=== PATIENT | female | born 1960 | race Caucasian/White ===

== ENCOUNTER 2023-02-10 09:37 | Outpatient (AMB) | payer OTHER, SELFPAY ==
[2023-02-10 09:38] VITALS: BP 120/78; PULSE 81; O2SAT 96; BMI 25.6
--- NOTE | 2023-02-10 09:38 | A.OFFPC_ITS ---
Vital Signs 02/10/23 09:38 Height 5 ft 5 in Weight 154 lb BMI 25.6 BP 120/78 Blood Pressure Location Lt brachial Position Sitting Pulse 81 Pulse Source Pulse Oximeter Pulse Oximetry (%) 96 Oxygen Delivery Method Room Air Intake Visit Reasons: f/u weight check [employer] Required: No Accompanied by: Self / Same As Patient Allergies No Known Allergies Allergy (Verified 02/10/23 09:46) Medication List - Last Reconciled 02/10/23 by Joseph Palencia PA-C bupropion HCl (Wellbutrin XL) 300 mg PO QAM 90 days ciclopirox 0.77% 1 appl topical BID 4 weeks finasteride 5 mg PO DAILY levothyroxine 88 mcg PO DAILY 90 days phentermine 37.5 mg PO DAILY 28 days triamcinolone acetonide 0.5% 1 appl topical DAILY 30 days Tobacco use date assessed: 02/10/23 Dental Screening Dental Screen Date: 02/10/23 Did you have a dental visit in the last 12 months?: Yes Did you have a dental problem in the last 6 months where you did not have access to dental care?: No Was dental information given to patient?: Patient has dentist HPI f/u weight check HPI Details Lucia is a 62 y/o F here today for follow-up visit. ? ? ? . Pmhx significant for Hypothyroid, UC, hyperlipidemia, anxiety, hyperlipidemia vit D def. ? .. ?? ? Overweight: At last visit we discussed her weight problem and patient wanted to try medication to help her reduce her weight. Janes started and has noted a 6 lb weight loss since last office visit. She otherwise denies any significant side effects of the new injectable therapy. She has a goal weight of 135lbs- BMI - 22 ?? ? CHRONIC MEDICAL CONDITIONS-- >? .. ? Hypothyroid:? Patient continues on levothyroxine 88 mcg.? TSH has been stable lately.? Patient having difficulty with losing weight.? .. ? Anxiety: Patient reports as of late her anxiety has been very elevated due to home family stressors.? She does report her anxiety has been somewhat on manageable at times though continues on Wellbutrin.? .. ? UC; Has been in remission over the last 10-15 years. ? .. ? Hyperlipidemia: Patient's previous lipid panel showing an elevated cholesterol and LDL of 160s . Will continue to work on lifestyle modifications on reducing high cholesterol foods in her diet. 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 1. Little interest or pleasure in doing things: not at all 2. Feeling down, depressed, or hopeless: not at all 3. Trouble falling or staying asleep, or sleeping too much: several days 4. Feeling tired or having little energy: several days 5. Poor appetite or overeating: more than half the days 6. Feeling bad about yourself - or that you are a failure or have let yourself or your family down: several days 7. Trouble concentrating on things, such as reading the newspaper or watching television: not at all 8. Moving or speaking so slowly that other people could have noticed. Or the opposite - being so fidgety or restless that you have been moving around a lot more than usual: not at all 9. Thoughts that you would be better off or of hurting yourself in some way: not at all Total score: 5 Depression Screening Interpretation: Positive Depression Screening Follow-up: Existing condition 75042 - PHQ-9 Billing: Yes Source: Developed by Drs. Frank Hirsch, Radha José, Zach Carter and colleagues, with an educational jose roberto from [employer]. Thrive Questionnaire Date Thrive assessed: 02/10/23 I am a: Patient What is your living situation today?: I have a steady place to live Within the past 12 months, did the food you bought not last and you didn't have the money to get more?: Never true Within the past 12 months, did you worry whether your food would run out before you got money to buy more?: Never true Do you have trouble paying for medicines?: No Do you have trouble getting transportation to medical appointments?: No Do you have trouble paying your heating and electricity bill?: No Do you have trouble taking care of your child, family member or friend?: No Do you have trouble with day-to-day activities such as bathing, preparing meals, shopping, managing finances, etc.?: No Are you currently unemployed and looking for a job?: No Are you interested in more education?: No Please select the resources that you would like help with: None Currently or been in a relationship where the following occur: no concerns reported AUDIT C Alcohol Use Questionnaire (AUDIT-C) 1. How often do you have a drink containing alcohol?: Monthly or less 2. How many drinks containing alcohol do you have on a typical day when you are drinking?: 1 or 2 3. How often do you have six or more drinks on one occasion?: Never Total Score: 1 GABE-7 AMB Questionnaire GABE-7 Date GABE - 7 assessed: 02/10/23 Feeling nervous, anxious, or on edge: 1 = Several days Not being able to stop or control worryin = Several days Worrying too much about different things: 1 = Several days Trouble relaxin = More than half the days Being so restless that it is hard to sit still: 2 = More than half the days Becoming easily annoyed or irritable: 2 = More than half the days Feeling afraid as if something awful might happen: 1 = Several days Total GABE-7 score (0-4 normal; 5-9 mild; 10-14 moderate; 15-21 severe): 10 Source: Developed by Drs. Frank Hirsch, Radha José, Zach Carter and colleagues, with an educational jose roberto from [employer] GABE-7 Assessment Billing GABE-7 Assessment Tool: GABE-7 Assessment 36076 Review of Systems Const Denies headache(s) Eyes Denies loss of vision ENT Denies vertigo, Denies dizziness, Denies headache(s) and Denies sore throat Card Denies chest pain, Denies leg edema and Denies lightheadedness Resp Denies cough, Denies hemoptysis and Denies wheezing GI Denies abdominal pain, Denies melena, Denies constipation, Denies diarrhea and Denies vomiting Denies urinary frequency, Denies dysuria and Denies urinary urgency Musc Denies arthralgias, Denies joint swelling, Denies numbness and Denies tingling Neuro Denies Abnormal speech present, Denies behavioral changes, Denies vertigo, Denies dizziness, Denies headache(s), Denies loss of vision, Denies memory loss, Denies numbness and Denies tingling Psych Denies anxiety, Denies behavioral changes, Denies depression, Denies memory loss and Denies panic attacks Chetan/Lymph Denies easy bleeding and Denies easy bruising Aller/Immun Denies wheezing Physical exam (Primary Care) Vital Signs: Last Vital Signs Pulse 81 02/10/23 09:38 BP 120/78 02/10/23 09:38 Pulse Ox 96 02/10/23 09:38 Oxygen Delivery Method Room Air 02/10/23 09:38 BMI result Body Mass Index 25.6 Tobacco/Smoking Status: Tobacco use Status Tobacco use date assessed 02/10/23 02/10/23 09:43 Patient Tobacco Use Status Never used Tobacco 02/10/23 09:43 e-Cigarette/Vaping Use Never Used 02/10/23 09:43 PHQ-9: PHQ-9 Score PHQ-9: Total score 5 02/10/23 09:50 Depression Screening Interpretation: Positive Depression Screening Follow-up: Existing condition Thrive Assessment: Date of Thrive Assessment Date Thrive assessed 02/10/23 02/10/23 09:43 Currently or been in a relationship where the following occur: no concerns reported Const General: healthy appearing, no acute distress, alert and awake Nutritional Appearance: well nourished Orientation/consciousness: oriented to person, oriented to place and oriented to time HENMT Ears: TM's normal bilaterally General nose exam: Normal nasal mucous membranes and turbinates present Eyes Conjunctivae: conjunctivae normal Sclerae: sclerae normal Pupils: Equal, round and reactive pupils present Neck Neck: Yes no lymphadenopathy and Yes no JVD Thyroid: Thyroid normal Carotids: no bruits Resp Effort & Inspection: normal respiratory effort and not tachypneic Auscultation: no crackles, no rales, no rhonchi and no wheezes Cardio Rate: regular rate Rhythm: regular rhythm Heart sounds: no murmurs and normal S1 and S2 GI Palpation (GI): Soft to palpation, nontender, no hepatomegaly and no splenomegaly Auscultation: normal bowel sounds Skin General skin exam: no rashes or lesions noted and dry skin Neuro General: oriented to person, oriented to place and oriented to time Cranial nerves: Yes Equal, round and reactive pupils present Speech: No Abnormal speech present Gait exam (Neuro): Normal gait present Motor exam (neuro): no tremor noted Extrem Right upper extremity: full ROM Left upper extremity: full ROM Right lower extremity: full ROM; no edema Left lower extremity: full ROM; no edema Psych Mental Status: mental status grossly normal Speech and movement: Normal speech and movement present Affect: normal affect Attitude: cooperative Thought process: Normal thought process present Assessment and Plan Assessment & Plan (1) Overweight (BMI 25.0-29.9): Code(s): E66.3 - Overweight Plan: Has started new injectable therapy for weight loss and noted 6 lb weight loss since last office visit. Denies any intolerable side effects. Would like to increase her dose over the next 4-8 weeks for further weight loss. Has a goal of being 135 lb. Medications: New semaglutide (weight loss) (Wegovy) administer weeks 9 through 12 of therapy 1 mg (0.5 mL) subcut QWEEK 2 mL 0RF E66.3 - Overweight semaglutide (weight loss) (Wegovy) administer weeks 13 through 16 of therapy 1.7 mg (0.75 mL) subcut QWEEK 4 weeks 3 mL 0RF E66.3 - Overweight Discontinued phentermine must administer 30 minutes before or 1-2 hours after breakfast Discontinued Reason: Doctor's Order 37.5 mg PO DAILY 28 days 28 tabs 0RF E66.3 - Overweight Coding Level of Care Code Est Pt Level 3 (72430) Diagnoses Overweight (BMI 25.0-29.9) E66.3 Additional Codes GABE-7 Assessment Billing - GABE-7 Assessment Tool: GABE-7 Assessment 36003 ([id number])
== END 2023-02-10 10:10 | disposition home or self-care (01) ==
PROVIDERS: PCP Physician Assistant; Visit Provider Physician Assistant
DX: E66.3 Overweight (principal)
CPT/HCPCS: 99213

== ENCOUNTER 2023-05-02 09:22 | Outpatient (REF) | payer OTHER, SELFPAY | END 2023-05-02 09:23 | disposition home or self-care (01) | LOC: HO.SH 09:22 | PROVIDERS: Visit Provider Physician Assistant | DX: Z01.118 Encounter for examination of ears and hearing with other abnormal findings (principal); H90.3 Sensorineural hearing loss, bilateral | CPT/HCPCS: 92557 ==

== ENCOUNTER 2023-12-23 09:37 | Outpatient (AMB) | payer OTHER, SELFPAY ==
[2023-12-23 09:52] VITALS: BP 124/84; PULSE 92; O2SAT 100; BMI 20.5
--- NOTE | 2023-12-23 09:52 | A.OFFPC_ITS ---
Vital Signs 12/23/23 09:52 Height 5 ft 5 in Weight 123 lb 8 oz BMI 20.5 BP 124/84 Blood Pressure Location Lt brachial Position Sitting Pulse 92 Pulse Source Pulse Oximeter Pulse Oximetry (%) 100 Oxygen Delivery Method Room Air Intake Visit Reasons: pe Intake Note: Patient is here today for a physical. 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: No Accompanied by: Self / Same As Patient Allergies No Known Allergies Allergy (Verified 12/23/23 10:22) Medication List - Last Reconciled 12/23/23 by Joseph Palencia PA-C bupropion HCl XL (Wellbutrin XL) 300 mg PO QAM 90 days ciclopirox 0.77% 1 appl topical BID 4 weeks cyclobenzaprine 5 mg PO BID 7 days finasteride 5 mg PO DAILY levothyroxine 88 mcg PO DAILY 90 days semaglutide (weight loss) (Wegovy) 2.4 mg (0.75 mL) subcut QWEEK 4 weeks triamcinolone acetonide 0.5% 1 appl topical DAILY 30 days Tobacco use date assessed: 12/23/23 Dental Screening Dental Screen Date: 12/23/23 Did you have a dental visit in the last 12 months?: Yes Did you have a dental problem in the last 6 months where you did not have access to dental care?: No Was dental information given to patient?: Patient has dentist HPI pe HPI Details Lucia is a 63-year-old female here today for routine annual physical. ? ? ? . Pmhx significant for Hypothyroid, UC, hyperlipidemia, anxiety, hyperlipidemia vit D def. ? .. ?? ? Overweight: At last visit we discussed her weight problem and patient wanted to try medication to help her reduce her weight. Janes started and has noted significant amount of weight loss.. She otherwise denies any significant side effects of the new injectable therapy. She has a goal weight of 135lbs, she is now 123 lb. KENYAY JUSTIFICATION-->>> She has noted benefit of controlled cholesterol, meeting weight goal, better self-esteem and decreased depression and anxiety. Also has noted to have a low TSH thus reducing her her levothyroxine dose. ?? ? CHRONIC MEDICAL CONDITIONS-- >? .. ? Hypothyroid:? Patient continues on levothyroxine 88 mcg.? TSH slightly low thus will reduce her levothyroxine dose.? Patient having difficulty with losing weight.? .. ? Anxiety: Patient reports as of late her anxiety has been very elevated d ue to home family stressors.? She does report her anxiety has been somewhat on manageable at times though continues on Wellbutrin.? .. ? UC; Followed by Dr Steven, And UC has been active as of late, has followed up with cath lab radiology technician and continues on treatment.. ? .. ? Hyperlipidemia: Patient's previous lipid panel improved total cholesterol and LDL. Will continue to work on lifestyle modifications on reducing high cholesterol foods in her diet. Mammo - UTD with Mammo- gets done at [facility] .. ? Colonoscopy: Patient receives annual colonoscopies due to her history of?UC- most recent colonoscopy done in December of 2021 ? . ? 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 .. Vaccine: UTD with COVID and Tdap. 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 1. Little interest or pleasure in doing things: not at all 2. Feeling down, depressed, or hopeless: not at all 3. Trouble falling or staying asleep, or sleeping too much: not at all 4. Feeling tired or having little energy: not at all 5. Poor appetite or overeating: not at all 6. Feeling bad about yourself - or that you are a failure or have let yourself or your family down: not at all 7. Trouble concentrating on things, such as reading the newspaper or watching television: not at all 8. Moving or speaking so slowly that other people could have noticed. Or the opposite - being so fidgety or restless that you have been moving around a lot more than usual: not at all 9. Thoughts that you would be better off or of hurting yourself in some way: not at all Total score: 0 Depression Screening Interpretation: Negative Depression Screening Done: Yes 29659 - PHQ-9 Billing: Yes Source: Developed by Drs. Frank Hirsch, Radha José, Zach Carter and colleagues, with an educational jose roberto from [employer]. Thrive Questionnaire Date Thrive assessed: 12/23/23 I am a: Patient What is your living situation today?: I have a steady place to live Within the past 12 months, did the food you bought not last and you didn't have the money to get more?: Never true Within the past 12 months, did you worry whether your food would run out before you got money to buy more?: Never true Do you have trouble paying for medicines?: No Do you have trouble getting transportation to medical appointments?: No Do you have trouble paying your heating and electricity bill?: No Do you have trouble taking care of your child, family member or friend?: No Do you have trouble with day-to-day activities such as bathing, preparing meals, shopping, managing finances, etc.?: No Are you currently unemployed and looking for a job?: No Are you interested in more education?: No Please select the resources that you would like help with: None Currently or been in a relationship where the following occur: no concerns reported THRIVE Score: 0 AUDIT C Alcohol Use Questionnaire (AUDIT-C) 1. How often do you have a drink containing alcohol?: Never 3. How often do you have six or more drinks on one occasion?: Never Total Score: 0 GABE-7 AMB Questionnaire GABE-7 Date GABE - 7 assessed: 12/23/23 Feeling nervous, anxious, or on edge: 0 = Not at all Not being able to stop or control worryin = Not at all Worrying too much about different things: 0 = Not at all Trouble relaxin = Not at all Being so restless that it is hard to sit still: 0 = Not at all Becoming easily annoyed or irritable: 0 = Not at all Feeling afraid as if something awful might happen: 0 = Not at all Total GABE-7 score (0-4 normal; 5-9 mild; 10-14 moderate; 15-21 severe): 0 Source: Developed by Drs. Frank Hirsch, Radha José, Zach Carter and colleagues, with an educational jose roberto from [employer]. GABE-7 Assessment Billing GABE-7 Assessment Tool: GABE-7 Assessment 04507 Review of Systems Const Denies body aches, Denies chills, Denies excessive sweating, Denies fatigue, Denies fever(s) and Denies headache(s) Eyes Denies blurry vision ENT Denies dysphagia, Denies vertigo, Denies dizziness, Denies headache(s), Denies hearing loss and Denies tinnitus Card Denies chest pain, Denies chest pain with activity, Denies syncope, Denies irregular heart rhythm and Denies dyspnea Resp Denies chest congestion, Denies cough, Denies hemoptysis, Denies dyspnea and Denies wheezing GI Denies abdominal pain, Denies melena, Denies hematochezia, Denies coffee ground emesis, Denies dysphagia, Denies diarrhea, Denies nausea and Denies vomiting Denies urinary frequency, Denies dysuria, Denies urinary hesitancy and Denies urinary urgency Musc Denies arthralgias, Denies limited range of motion, Denies muscle cramps and Denies muscle weakness Skin/Breast Denies rash and Denies skin ulcer Neuro Denies Abnormal speech present, Denies confusion, Denies vertigo, Denies dizziness, Denies syncope, Denies headache(s), Denies memory loss and Denies seizure-like activity Psych Denies anxiety, Denies confusion, Denies depression, Denies memory loss, Denies panic attacks and Denies paranoia Endo Denies excessive sweating, Denies fatigue, Denies flushing, Denies polydipsia and Denies polyuria Aller/Immun Denies wheezing Physical exam (Primary Care) Vital Signs: Last Vital Signs Pulse 92 05/28/24 09:52 BP 124/84 12/23/23 09:52 Pulse Ox 100 12/23/23 09:52 Oxygen Delivery Method Room Air 12/23/23 09:52 BMI result Body Mass Index 20.5 Tobacco/Smoking Status: Tobacco use Status Tobacco use date assessed 12/23/23 12/23/23 09:53 Patient Tobacco Use Status Never used Tobacco 12/23/23 09:53 e-Cigarette/Vaping Use Never Used 12/23/23 09:53 PHQ-9: PHQ-9 Score PHQ-9: Total score 0 12/23/23 10:05 Depression Screening Interpretation: Negative Thrive Assessment: Date of Thrive Assessment Date Thrive assessed 12/23/23 12/23/23 10:05 Currently or been in a relationship where the following occur: no concerns reported Const General: cooperative, comfortable, no acute distress, alert and awake; No confusion Orientation/consciousness: oriented to person, oriented to place, patient oriented x3 and No confusion HENMT Head: Yes normocephalic Ears: external ears normal and TM's normal bilaterally Face and sinus: No sinus tenderness Mouth: Normal oral and palatal mucosa present and tongue normal Teeth and gingiva: dentition normal and gingiva normal Throat: Yes posterior oropharynx normal, Yes tonsils normal and Yes uvula midline Eyes Conjunctivae: conjunctivae normal Sclerae: sclerae normal Pupils: Equal, round and reactive pupils present EOM: EOMs intact bilaterally Direct Ophthalmoscopy: No no photophobia Neck Neck: Yes no lymphadenopathy, No tender and Yes no JVD Thyroid: Thyroid normal Carotids: no bruits Chest Chest palpation & inspection: no tenderness Resp Effort & Inspection: normal respiratory effort, no audible wheezes, not labored and no stridor Auscultation: no crackles, no rales, no rhonchi and no wheezes Cardio Jugular venous distension: no JVD Rate: regular rate, not bradycardic and not tachycardic Rhythm: regular rhythm Bruits: no carotid bruits Peripheral pulses: Peripheral pulses 2+ throughout GI Inspection: Yes normal to inspection, No abdominal wall ecchymosis and No visible herniation Palpation (GI): Soft to palpation, nontender, no guarding, not rigid and No hepatosplenomegaly present Auscultation: normoactive bowel sounds General: Yes no CVA tenderness Back/Spine/Pelvis Back: no CVA tenderness and No back tenderness Cervical Spine: cervical ROM normal Thoracic/Lumbar Spine: thoracic and lumbar spine normal to inspection, straight leg raise negative bilaterally, No thoraco-lumbar ROM limited and No lumbar spinal tenderness Skin Lesions: no lesions Rashes: no rashes Wounds: no wounds Neuro General: oriented to person, oriented to place, patient oriented x3, CN's II-XI intact bilaterally and No confusion Cranial nerves: Yes Equal, round and reactive pupils present and Yes Normal accommodation reflex present Cognition (Neuro): normal cognition Speech: No Abnormal speech present Gait exam (Neuro): Normal gait present Motor exam (neuro): 5/5 motor strength present throughout Extrem Right upper extremity: full ROM; no cyanosis Left upper extremity: full ROM; no cyanosis Right lower extremity: no edema Left lower extremity: no edema Psych Appearance: grossly normal Mental Status: mental status grossly normal Affect: normal affect Attitude: cooperative Thought process: Normal thought process present Assessment and Plan Assessment & Plan (1) Annual physical exam: Code(s): Z00.00 - Encounter for general adult medical examination without abnormal findings (2) Overweight (BMI 25.0-29.9): Code(s): E66.3 - Overweight Plan: Patient continues on will go we and has lost a significant amount of weight. She has found benefit such as controlled cholesterol, lower dose of levothyroxine, better mental health due to her self image. We will try to maintain her WEGOVY at 1.7 mg weekly. (3) GABE (generalized anxiety disorder): Code(s): F41.1 - Generalized anxiety disorder Plan: Mental health has been much better since losing weight. She continues on bupropion with good effect. (4) Hypothyroidism: Code(s): E03.9 - Hypothyroidism, unspecified Qualifiers: Hypothyroidism type: unspecified Qualified Code(s): E03.9 - Hypothyroidism, unspecified Plan: Most recent TSH low at 0.13. Will reduce her dose of levothyroxine down to 75 mcg. Continues on levothyroxine 88 mcg daily. Will continue to follow TSH to assure normal. (5) Borderline high cholesterol: Code(s): E78.9 - Disorder of lipoprotein metabolism, unspecified Plan: Most recent fasting lipid panel showing improved total cholesterol and LDL. Has been able to lose weight with new GLP 1. Will continue to work on lifestyle modifications to reduce her cholesterol. (6) Ulcerative colitis: Code(s): K51.90 - Ulcerative colitis, unspecified, without complications Qualifiers: Ulcerative colitis location: unspecified ulcerative colitis location Digestive disease complication type: without complication Qualified Code(s): K51.90 - Ulcerative colitis, unspecified, without complications Plan: Followed by gastroenterology. Continues on treatment for her ulcerative colitis . She does report her ulcerative colitis has been more active as of late. Unclear if this is due to taking new GLP 1. Orders: Orders Lipid Panel 6 Months E78.9 - Disorder of lipoprotein metabolism, unspecified TSH reflex Free T4 6 Months E03.9 - Hypothyroidism, unspecified Complete Blood Count no Diff 6 Months E03.9 - Hypothyroidism, unspecified Comprehensive [place]. Panel Fast 6 Months E03.9 - Hypothyroidism, unspecified Medications: New levothyroxine 75 mcg PO DAILY 90 days 90 caps 1RF E03.9 - Hypothyroidism, unspecified semaglutide (weight loss) (Wegovy) 1.7 mg (0.75 mL) subcut QWEEK 4 weeks 3 mL 6RF E66.3 - Overweight Discontinued semaglutide (weight loss) (Wegovy) Discontinued Reason: Doctor's Order 2.4 mg (0.75 mL) subcut QWEEK 4 weeks 3 mL 1RF E66.3 - Overweight levothyroxine Discontinued Reason: Doctor's Order 88 mcg PO DAILY 90 days 90 tabs 0RF E03.9 - Hypothyroidism, unspecified Patient Instructions: Goal: LDL to be below 160 Barriers: Active ulcerative colitis, Adherence to physical activity and healthy eating habits. Coding Level of Care Code Est Pt Prev Care 40-64y(16604) Diagnoses Annual physical exam Z00.00 Overweight (BMI 25.0-29.9) E66.3 GABE (generalized anxiety disorder) F41.1 Hypothyroidism, unspecified type E03.9 Hypothyroidism type: unspecified Borderline high cholesterol E78.9 Ulcerative colitis without complications, unspecified location K51.90 Ulcerative colitis location: unspecified ulcerative colitis location Digestive disease complication type: without complication Additional Codes GABE-7 Assessment Billing - GABE-7 Assessment Tool: GABE-7 Assessment [id number] ([id number])
== END 2023-12-23 10:54 | disposition home or self-care (01) ==
PROVIDERS: Visit Provider Physician Assistant
DX: Z00.00 Encounter for general adult medical examination without abnormal findings (principal); F41.1 Generalized anxiety disorder; E03.9 Hypothyroidism, unspecified; K51.90 Ulcerative colitis, unspecified, without complications; E78.9 Disorder of lipoprotein metabolism, unspecified
CPT/HCPCS: 99396

== ENCOUNTER 2024-06-10 10:26 | Outpatient (REF) | payer OTHER, SELFPAY ==
--- NOTE | ~2024-06-10 | MM_ITS ---
EXAMINATION: BONE DENSITOMETRY CLINICAL INDICATION: Menopause. COMPARISON: This is the patient's baseline examination. TECHNIQUE: Using a [employer] DXA System (software version: 13.1) manufactured by [employer], dual-energy x-ray absorptiometry was performed of the lumbar spine and left hip. The images are of good technical quality. Summary results are attached. FINDINGS: LEFT FEMUR, NECK: BMD 0.805 g/cm2, Z-score -0.1, T-score -1.7, osteopenia. LEFT FEMUR, TOTAL: BMD 0.867 g/cm2, Z-score 0.2, T-score -1.1, osteopenia. AP SPINE L1-L4: BMD 0.922 g/cm2, Z-score -0.4, T-score -2.1, osteopenia. IDENTIFIED RISK FACTORS: Menopause, secondary osteoporosis. HISTORY OF FRACTURE: None listed. MEDICATIONS: Vitamin D. MM/XR DEXA axial skeleton IMPRESSION: 1. DIAGNOSIS: Osteopenia based on the lowest T-score value of -2.1 in the lumbar spine applying World Health Organization criteria. 2. 10-YEAR FRACTURE RISK PREDICTION, FRAX: Major osteoporotic fracture (clinical spine, forearm, hip or shoulder) 8.1%. Hip fracture 0.9%. 3. Treatment Recommendations: NOF guidelines recommend consideration for treatment in postmenopausal women and men age 50 and older presenting with the following: -A hip or vertebral (clinical or morphometric) fracture. -T-score less than or equal to -2.5 at the femoral neck or spine after appropriate evaluation to exclude secondary causes. -Low bone mass at the hip or spine and a 10-year fracture probability by FRAX of greater than or equal to 3% for hip fracture or greater than or equal to 20% for major osteoporotic fracture based on the [place] adapted WHO algorithm. 4. Other Recommendations: All treatment decisions require clinical judgment and consideration of individual patient factors, including patient preferences, comorbidities, previous drug use, risk factors not captured in the FRAX model (e.g. frailty, falls, vitamin D deficiency, increased bone turnover, interval significant decline in bone density) and possible under or overestimation of fracture risk by FRAX. Additional medical evaluation for secondary cause of low bone mineral density may be appropriate. FUTURE SCAN RECOMMENDATION: People with diagnosed cases of osteoporosis or at high risk for fracture should have regular bone mineral density tests. For patients eligible for Medicare, routine testing is allowed once every 2 years. The testing frequency can be increased to one year for patients who have rapidly progressing disease, those who are receiving or discontinuing medical therapy to restore bone mass, or have additional risk factors. Electronically signed by: Megan Castillo MD 06/10/2024 12:10 PM [email or web address]
== END 2024-06-10 10:27 | disposition home or self-care (01) ==
LOC: HO.MAMMO 10:26
PROVIDERS: PCP Physician Assistant; Visit Provider Physician Assistant
DX: Z78.0 Asymptomatic menopausal state (principal)
CPT/HCPCS: 77080

== ENCOUNTER 2024-11-10 14:15 | Outpatient (AMB) | payer BC, SELFPAY ==
[2024-11-10 14:21] VITALS: BP 148/90; PULSE 107; TEMP 36.2; O2SAT 98; BMI 21.9
--- NOTE | 2024-11-10 14:21 | A.OFFPC_ITS ---
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 Required: No Accompanied by: Self / Same As Patient Allergies No Known Allergies Allergy (Verified 11/10/24 14:39) Medication List - Last Reconciled 11/10/24 by Joseph Palencia PA-C bimatoprost 0.03% topical DAILY bupropion HCl XL (Wellbutrin XL) 300 mg PO QAM 90 days cyclobenzaprine 5 mg PO BID 7 days estradiol 0.01%(0.1mg/gram) vaginal finasteride 5 mg PO DAILY levothyroxine 75 mcg PO DAILY minoxidil mg PO semaglutide (weight loss) (Wegovy) 1.7 mg (0.75 mL) subcut QWEEK 4 weeks triamcinolone acetonide 0.5% 1 appl topical DAILY 30 days upadacitinib ER (Rinvoq) 45 mg PO DAILY Tobacco use date assessed: 11/10/24 Dental Screening Dental Screen Date: 11/10/24 Did you have a dental visit in the last 12 months?: Yes Did you have a dental problem in the last 6 months where you did not have access to dental care?: No Was dental information given to patient?: Patient has dentist HPI Med review HPI Details Lucia is a 63-year-old female here today for a follow up. ? ? ? . Pmhx significant for Hypothyroid, UC, hyperlipidemia, anxiety, hyperlipidemia vit D def. ? .. ?? ? Overweight: She has ceased Wegovy use a few months before this visit due to cost considerations and adverse effects such as hair loss and fatigue, noting these changes coincide with increased cholesterol and blood pressure levels. Historical context reveals a stabilized state of ulcerative colitis with non- overlapping therapeutic regimens of Entyvio and Rinvoq showing success. Complaints of insulin resistance and a slow metabolism complicate weight management, leading to the patient's anxiety over returning to past unhealthy weight levels. WEGOVY JUSTIFICATION-->>> She has noted benefit of controlled cholesterol, meeting weight goal, better self-esteem and decreased depression and anxiety. Also has noted to have a low TSH thus reducing her her levothyroxine dose. ? Hypothyroid:? Patient continues on levothyroxine 75 mcg. Will recheck TSH to assure normal? Patient having difficulty with losing weight.? .. ? Anxiety: Patient reports as of late her anxiety has been very elevated due to home family stressors.? She does report her anxiety has been somewhat on manageable at times though continues on Wellbutrin.? .. ? UC; Followed by Dr Bland, And UC has been active as of late, has fo llowed up with gut dropper and continues on treatment.. She reports her inflammatory bowel disease has been fairly well controlled lately after she has finished treatment. ? .. ? Hyperlipidemia: Most recent lipid panel taken (nonfasting) showing a slightly borderline high cholesterol. PLAN: Plan on getting a true fasting lipid panel to ensure appropriate values of her total cholesterol and LDL. Will continue to work on lifestyle modifications on reducing high cholesterol foods in her diet. 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 1. Little interest or pleasure in doing things: not at all 2. Feeling down, depressed, or hopeless: not at all 3. Trouble falling or staying asleep, or sleeping too much: not at all 4. Feeling tired or having little energy: not at all 5. Poor appetite or overeating: not at all 6. Feeling bad about yourself - or that you are a failure or have let yourself or your family down: not at all 7. Trouble concentrating on things, such as reading the newspaper or watching television: not at all 8. Moving or speaking so slowly that other people could have noticed. Or the opposite - being so fidgety or restless that you have been moving around a lot more than usual: not at all 9. Thoughts that you would be better off or of hurting yourself in some way: not at all Total score: 0 Depression Screening Interpretation: Negative Depression Screening Done: Yes 80604 - PHQ-9 Billing: Yes Source: Developed by Drs. Frank Hirsch, Radha José, Zach Carter and colleagues, with an educational jose roberto from [employer] Thrive Questionnaire Date Thrive assessed: 11/10/24 I am a: Patient What is your living situation today?: I have a steady place to live Within the past 12 months, did the food you bought not last and you didn't have the money to get more?: Never true Within the past 12 months, did you worry whether your food would run out before you got money to buy more?: Never true Do you have trouble paying for medicines?: No Do you have trouble getting transportation to medical appointments?: No Do you have trouble paying your heating and electricity bill?: No Do you have trouble taking care of your child, family member or friend?: No Do you have trouble with day-to-day activities such as bathing, preparing meals, shopping, managing finances, etc.?: No Are you currently unemployed and looking for a job?: No Are you interested in more education?: No Please select the resources that you would like help with: None Currently or been in a relationship where the following occur: No concerns reported THRIVE Score: 0 AUDIT C Alcohol Use Questionnaire (AUDIT-C) 1. How often do you have a drink containing alcohol?: Never 3. How often do you have six or more drinks on one occasion?: Never Total Score: 0 GABE-7 AMB Questionnaire GABE-7 Date GABE - 7 assessed: 11/10/24 Feeling nervous, anxious, or on edge: 0 = Not at all Not being able to stop or control worryin = Not at all Worrying too much about different things: 0 = Not at all Trouble relaxin = Not at all Being so restless that it is hard to sit still: 0 = Not at all Becoming easily annoyed or irritable: 0 = Not at all Feeling afraid as if something awful might happen: 0 = Not at all Total GABE-7 score (0-4 normal; 5-9 mild; 10-14 moderate; 15-21 severe): 0 Source: Developed by Drs. Frank Hirsch, Radha José, Zach Carter and colleagues, with an educational jose roberto from [employer] GABE-7 Assessment Billing GABE-7 Assessment Tool: GABE-7 Assessment 41627 Review of Systems Const Denies headache(s) Eyes Denies loss of vision ENT Denies vertigo, Denies dizziness, Denies headache(s) and Denies sore throat Card Denies chest pain, Denies leg edema and Denies lightheadedness Resp Denies cough, Denies hemoptysis and Denies wheezing GI Denies abdominal pain, Denies melena, Denies constipation, Denies diarrhea and Denies vomiting Denies urinary frequency, Denies dysuria and Denies urinary urgency Musc Denies arthralgias, Denies joint swelling, Denies numbness and Denies tingling Neuro Denies Abnormal speech present, Denies behavioral changes, Denies vertigo, Denies dizziness, Denies headache(s), Denies loss of vision, Denies memory loss, Denies numbness and Denies tingling Psych Denies anxiety, Denies behavioral changes, Denies depression, Denies memory loss and Denies panic attacks Chetan/Lymph Denies easy bleeding and Denies easy bruising Aller/Immun Denies wheezing Physical exam (Primary Care) Vital Signs: Last Vital Signs Temp 97.1 F 11/10/24 14:21 Pulse 107 H 11/10/24 14:21 BP 125/70 11/10/24 14:57 Pulse Ox 98 11/10/24 14:21 Oxygen Delivery Method Room Air 11/10/24 14:21 BMI result Body Mass Index 21.9 Tobacco/Smoking Status: Tobacco use Status Tobacco use date assessed 11/10/24 11/10/24 14:24 Patient Tobacco Use Status Never used Tobacco 11/10/24 14:24 e-Cigarette/Vaping Use Never Used 11/10/24 14:24 PHQ-9: PHQ-9 Score PHQ-9: Total score 0 11/10/24 14:30 Depression Screening Interpretation: Negative Thrive Assessment: Date of Thrive Assessment Date Thrive assessed 11/10/24 11/10/24 14:24 Currently or been in a relationship where the following occur: No concerns reported Const General: healthy appearing, no acute distress, alert and awake Nutritional Appearance: well nourished Orientation/consciousness: oriented to person, oriented to place and oriented to time HENMT Ears: TM's normal bilaterally General nose exam: Normal nasal mucous membranes and turbinates present Eyes Conjunctivae: conjunctivae normal Sclerae: sclerae normal Pupils: Equal, round and reactive pupils present Neck Neck: Yes no lymphadenopathy and Yes no JVD Thyroid: Thyroid normal Carotids: no bruits Resp Effort & Inspection: normal respiratory effort and not tachypneic Auscultation: no crackles, no rales, no rhonchi and no wheezes Cardio Rate: regular rate Rhythm: regular rhythm Heart sounds: no murmurs and normal S1 and S2 GI Palpation (GI): Soft to palpation, nontender, no hepatomegaly and no splenomegaly Auscultation: normal bowel sounds Skin General skin exam: no rashes or lesions noted and dry skin Neuro General: oriented to person, oriented to place and oriented to time Cranial nerves: Yes Equal, round and reactive pupils present Speech: No Abnormal speech present Gait exam (Neuro): Normal gait present Motor exam (neuro): no tremor noted Extrem Right upper extremity: full ROM Left upper extremity: full ROM Right lower extremity: full ROM; no edema Left lower extremity: full ROM; no edema Psych Mental Status: mental status grossly normal Speech and movement: Normal speech and movement present Affect: normal affect Attitude: cooperative Thought process: Normal thought process present Coding Level of Care Code Est Pt Level 4 (45487) Diagnoses Ulcerative colitis without complications, unspecified location K51.90 Digestive disease complication type: without complication Ulcerative colitis location: unspecified ulcerative colitis location Overweight (BMI 25.0-29.9) E66.3 GABE (generalized anxiety disorder) F41.1 Borderline high cholesterol E78.9 Hypothyroidism, unspecified type E03.9 Hypothyroidism type: unspecified Additional Codes GABE-7 Assessment Billing - GABE-7 Assessment Tool: GABE-7 Assessment 14438 ([id number]) PHQ-9 - 74504 - PHQ-9 Billing: Yes ([id number]) Assessment & Plan Assessment & Plan (1) Ulcerative colitis: Code(s): K51.90 - Ulcerative colitis, unspecified, without complications Category: Medical Qualifiers: Digestive disease complication type: without complication Ulcerative colitis location: unspecified ulcerative colitis location Qualified Code(s): K51.90 - Ulcerative colitis, unspecified, without complications Plan: Patient is followed by gastroenterology (Dr. bland) and underwent treatment in believes now her inflammatory bowel disease is in remission. During treatment for her inflammatory bowel disease she had stopped use of GLP 1 due to fears of side effects and too much weight loss. Now that her inflammatory bowel disease is in remission she would like to restart GLP 1 to maintain weight loss. (2) Overweight (BMI 25.0-29.9): Code(s): E66.3 - Overweight Category: Medical Plan: The patient will attempt to resume Wegovy at a lower dose upon insurance approval while observing health benefits versus side effects. Lifestyle adjustments remain emphasized. -- > GLP-1 medical justification : While taking GLP 1 she admits to much better eating habits, increased energy, better self-esteem and was able to manage her weight a lot better. We did see noticeable effects on lowering cholesterol and reducing her dose of levothyroxine for her hypothyroidism. (3) GABE (generalized anxiety disorder): Code(s): F41.1 - Generalized anxiety disorder Category: Medical Plan: Patient's GABE-7 score 0, does have a history of generalized anxiety disorder. Patient reports her anxiety is fairly well controlled with current dose of Wellbutrin. Not speaking with a mental health therapist at this time. (4) Borderline high cholesterol: Code(s): E78.9 - Disorder of lipoprotein metabolism, unspecified Category: Medical Plan: Patient continues on lifestyle and dietary modifications to control her borderline high cholesterol. Advised on getting a true fasting value for her borderline high cholesterol. (5) Hypothyroidism: Code(s): E03.9 - Hypothyroidism, unspecified Category: Medical Qualifiers: Hypothyroidism type: unspecified Qualified Code(s): E03.9 - Hypothyroidism, unspecified Plan: Most recent TSH was stable, we have reduced her levothyroxine dose to 75 mcg from 88 mcg due to her losing weight on GLP 1. Continue to monitor TSH to assure normal Orders: Orders Comprehensive [place]. Panel Fast 11/10/24 E78.9 - Disorder of lipoprotein metabolism, unspecified Lipid Panel 11/10/24 E78.9 - Disorder of lipoprotein metabolism, unspecified Medications: New semaglutide (weight loss) (Wegovy) 1 mg (0.5 mL) subcut QWEEK 2 mL 3RF 4 weeks E03.9 - Hypothyroidism, unspecified, E66.3 - Overweight, E78.9 - Disorder of lipoprotein metabolism, unspecified Discontinued semaglutide (weight loss) (Wegovy) Discontinued Reason: Doctor's Order 1.7 mg (0.75 mL) subcut QWEEK 4 weeks 3 mL 6RF E66.3 - Overweight
[2024-11-10 14:57] VITALS: BP 125/70
--- OUTSIDE RECORDS SUMMARY | 2024-11-10 16:59 | XMS_ITS ---
Author Organization [facility] Address [address] [place] [address] Care Team Providers Care Barrel Bridge Assembler Name Role Phone ANABEL KELLEY Primary Care Provider ARABELLA Garcia Unavailable [phone] Allergies No Known Allergies Results Component Value Reference Range Notes [id number] IGP No Culture 30 Plus Reviewed date:07/15/2024 10:34:13 AM Interpretation: Performing Lab:[facility], [address], [address], [place], Phone - [phone], Director - [facility] Notes/Report: Clinical Information:vaginal/ cervical [id number] Dates / Results....07/15/19 No. of containers..01 ThinPrep Vial DIAGNOSIS: NEGATIVE FOR INTRAEPITHELIAL LESION OR MALIGNANCY. CELLULAR CHANGES ASSOCIATED WITH ATROPHY ARE PRESENT. THIS SPECIMEN WAS RESCREENED PART OF OUR COMPLAINT EVALUATION OFFICER PROGRAM. Specimen adequacy: Satisfactory for evaluation. Endocervical component may not be distinguished in cases of atrophy. Areas of partially obscuring inflammatory exudate are present. Clinician provided ICD10: Z0 1.419 Performed by: Kerri Espino ytotechnologist (ASCP) QC reviewed by: Sindhu barron, Bilingual Nanny (ASCP) . . Note: The Pap smear is a screening test designed to aid in the detection of premalignant and malignant conditions of the uterine cervix. It is not a diagnostic procedure and should not be used as the sole means of detecting cervical cancer. Both false-positive and false-negative reports do occur. . Test Methodology: This liquid based ThinPrep(R) pap test was screened with the use of an image guided system. HPV Aptima Negative Negative This nucleic acid amplification test detects fourteen high-risk HPV types (16,18,31,33,35,39,45,51,52,56,58 ,59,66,68) without differentiation. HPV Genotype Reflex Criteria not met, HPV Genotype not performed. PDF Report Reviewed date:07/15/2024 10:36:07 AM Interpretation: Performing Lab:[facility] [place], [address], [address], [place], Phone - [phone], Director - [facility] Notes/Report: Clinical Information:vaginal/ cervical [id number] Dates / Results....07/15/19 No. of containers..01 ThinPrep Vial REASON FOR VISIT Annual ADVOCACY DIRECTOR Physical Medications Medication SIG (Take, Route, Frequency, Duration) Notes Start Date End Date Status Estradiol 0.1 MG/GM 1 gram Vaginal twice weekly for 365 days Maintenance dose 07/06/2024 Active Minoxidil 2.5 MG 1 tablet Orally Twice a day Active Levothyroxine Sodium 88 MCG as directed Orally Once a day Active Finasteride 5 MG 1 tablet Orally Once a day for 30 day(s) 0.5 tabs daily Active Estrace 0.1 MG/GM 1 gram Vaginal nightly for 14 days Loading dose 07/06/2024 Active Vitamin D Active Entyvio Active Calcium Active Wegovy 1.7 MG/0.75ML 0.75 mL Subcutaneous Active Social History Tobacco Use: Social History Observation Description Date Details (start date - stop date) Never Smoker NA - NA Tobacco Use/Smoking Question Answer Notes Are you a nonsmoker Alcohol Screen (Audit-C) Question Answer Notes Did you have a drink contain ing alcohol in the past year? Yes How often did you have a dri nk containing alcohol in the past year? Monthly or less (1 point) How many drinks did you have on a typical day when you were drinking in the past year? 1 or 2 drinks (0 point) How often did you have 6 or more drinks on one occasion in the past year? Never (0 point) Points 1 Interpretation Negative Tobacco use other than smoking: Question Answer Notes Are you an other tobacco user? No Problems Problem Type SNOMED Code ICD Code Onset Dates Problem Status W/U Status Risk Notes Problem Postmenopausal atrophic vaginitis (06578631) Postmenopausal atrophic vaginitis (N95.2) Active confirmed Vital Signs Temperature 97.5 degrees Fahrenheit 07/06/20 24 Blood pressure systolic 102 mm Hg 07/06/20 24 Blood pressure diastolic 74 mm Hg 024 Height 65 in 07/06/2024 Weight 121 lbs 07/06/2024 BMI 20.13 kg/m2 07/06/2024 Encounters Encounter Location Date Provider Diagnosis [address] [place] [address] 07/06/2024 ARABELLA HAILE Encounter for gynecological examination (general) (routine) without abnormal findings Z01.419 ; Encounter for screening mammogram for malignant neoplasm of breast Z12.31 and Postmenopausal atrophic vaginitis N95.2 Assessments Encounter Date Diagnosis (ICD Code) Assessment Notes Treatment Notes Treatment Clinical Notes Section Notes 07/06/2024 Encounter for gynecological examination (general) (routine) without abnormal findings (ICD-10 - Z01.419) During the visit, the following areas of concern were addressed: Discussed cervical cancer screening with either cytology alone every 3 years or high risk HPV co-testing every 5 years as per ASCCP guidelines. Advised continued annual pelvic exams. Patient encouraged to increase her level of exercise. SBE technique encouraged/tau ght. Patient reminded when annual mammogram is due. Patient encouraged to keep colon screening up to date. 07/06/2024 Encounter for screening mammogram for malignant neoplasm of breast (ICD-10 - Z12.31) 07/06/2024 Postmenopausal atrophic vaginitis (ICD-10 - N95.2) Plan Of Treatment Medication Medication Name Sig Start Date Stop Date Notes Estradiol 0.1 MG/GM 1 gram Vaginal twice weekly for 365 days 07/06/2024 Maintenance dose Estrace 0.1 MG/GM 1 gram Vaginal night ly for 14 days 07/06/2024 Loading dose Treatment Notes Assessment Notes Encounter for gynecological examination (general) (routine) without abnormal findings During the visit, the following areas of concern were addressed: Discussed cervical cancer screening with either cytology alone every 3 years or high risk HPV co-testing every 5 years as per ASCCP guidelines. Advised continued annual pelvic exams. Patient encouraged to increase her level of exercise. SBE technique encouraged/taught. Patient reminded when annual mammogram is due. Patient encouraged to keep colon screening up to date. 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 ? She has been in state of good health since her last exam. She has had a flare of ulcerative colitis, just started a biologic.?She has the following concerns: none ? She has received the [employer] Covid-19 vaccine. ? Relationship status: for 36 years. She is sexually active. Sexual partner(s): male. She does not wish to have STI testing. ? She does report vaginal dryness - she uses lubricant with fair relief - she would be interested in trying vaginal hormones. She does not have hot flashes/night sweats. She has had friends and family who have been raving about hormone therapy. She states that her friends feel younger and more vibrant with more energy and less bone aching. Discussed their use for control of hot flashes/night sweats.? Discussed risks of breast cancer and cardiac events with hormone use.? The patient has not had an abnormal pap smear within the last 5 years. Her most recent pap smear was 07/15/19 - NIL, neg HR HPV. Next due in 2023. ? She has not been diagnosed with breast cancer. She does have a family history of breast cancer - paternal first cousin. Her last mammogram was 09/16/2023, at [facility] office. She has heterogeneously dense breast tissue, with a Tyrer Cuzick risk of 21.3%.? We discussed additional screening, as breast MRI or breast ultrasound, but she declines. ? She does have a family history of colon cancer - paternal uncle. She a has had a colonoscopy. The last colonoscopy was in April 2024 - severe UC flare. Follow up in 6 months. ? The patient does not currently exercise. She plans to start lifting weights again. She had been exercising x 5 days/week by cycling, but had a fall this summer. * ROS:?Annual Mimeographer Exam ROS:?Bowel habit changes?denies.?Bladder symptoms?denies.?Vaginal discharge, unusual?denies.?Vaginal itch or odor?denies.?weight or appetite changes?denies.?Chest pains, SOB?denies.?depression?denies.?Breast:?Denies?Breast lump.?Denies?Nipple discharge.?Hematology:?Denies?Swollen glands.?Skin:?Patient denies?changing moles.?Psychiatric:?Denies?Anxiety.? * Medical History:? * Mimeographer History:?/ Para?4/4.?Sexual activity?currently sexually active, with men.?Last Pap Smear:?07/15/19 - NIL, neg HR HPV; End of 2015, NIL as per patient.?Mammogram:?09/16/23 50-75% density, 04/30/2022 50-75% density, 06/2018, normal as per patient.?Abnormal Pap Smear:?no history of abnormal pap smears.?LMP and menses?post dinah.?History of STD's:?none.?Menarche?13.?Menopause: ?Began at age: ?54 ???Colonoscopy?04/2024, summer, yes, 06/2018 Done Yearly.? * OB History:?Total pregnancies?4.?Total living children?4.?NVD?4.? * Surgical History:?Breast Bx colonoscopy * Hospitalization/Major Diagno stic Procedure:?Fractured Skull Vaginal Deliveries * Family History:?Mother: dece ased, Lung Cancer.?Father: .? Paternal first cousin from breast cancer at age 42 Paternal uncle from colon cancer - mid 60's Daughter - fibromyxoma (benign) in her sinus/cheek. * Social History:?Tobacco Use:?Tobacco Use/Smoking?Are you a?nonsmoker ?Tobacco use other than smoking?Are you an other tobacco user??No ???Drugs/Alcohol:?Drugs?Have you used drugs other than those for medical reasons in the past 12 months??No ?Alcohol Screen (Audit-C)?Did you have a drink containing alcohol in the past year??Yes ?How often did you have a drink containing alcohol in the past year??Monthly or less (1 point) ?How many drinks did you have on a typical day when you were drinking in the past year??1 or 2 drinks (0 point) ?How often did you have 6 or more drinks on one occasion in the past year??Never (0 point) ?Points?1 ?Interpretation?Negative ???Miscellaneous:?Children: 4. ?Domestic violence: no. ?Exercise: yes, Bikes. ?Home smoke detector use: yes, smoke detectors, carbon monoxide detector. ?Housing: owns a home. ?Living with: spouse. ?Marital status: , German. ?Occupation: [employer]. ?Pets: none. ?Sexual abuse: no. ?Sexually active: yes, monogamous relationship. ?Verbal abuse: no. * Medications:?TakingVitamin D Calcium Entyvio Wegovy 1.7 MG/0.75ML Solution Auto-injector 0.75 mL Subcutaneous Minoxidil 2.5 MG Tablet 1 tablet Orally Twice a day Finasteride 5 MG Tablet 1 tablet Orally Once a day , Notes to Pharmacist: 0.5 tabs dailyLevothyroxine Sodium 88 MCG Tablet as directed Orally Once a day Taking Vitamin D Taking Calcium Taking Entyvio Taking Wegovy 1.7 MG/0.75ML Solution Auto-injector 0.75 mL Subcutaneous Taking Minoxidil 2.5 MG Tablet 1 tablet Orally Twice a day Taking Finasteride 5 MG Tablet 1 tablet Orally Once a day , Notes to Pharmacist: 0.5 tabs dailyTaking Levothyroxine Sodium 88 MCG Tablet as directed Orally Once a day DiscontinuedWellbutrin SR 200 MG Tablet Extended Release 12 Hour 1 tablet in the morning Orally Once a day Medication List reviewed and reconciled with the patientDiscontinued Wellbutrin SR 200 MG Tablet Extended Release 12 Hour 1 tablet in the morning Orally Once a day Medication List reviewed and reconciled with the patient * Allergies:?N.K.D.A.no[Allerg ies Verified] Objective: * Vitals:?Ht: 65 in, Wt:121lbs , BMI:20.13Index, BP:102/74mm Hg, Temp:97.5F. * Examination: ???General Examination: ?GENERAL APPEARANCE:?in no acute distress, well developed, well nourished, service delivery manager present in room.?HEAD:?normocephalic, atraumatic.?NECK/THYROID:?neck supple, full range of motion, thyroid normal.?LYMPH NODES:?no axillary or supraclavicular adenopathy.?SKIN:? normal, good turgor, no rashes, no suspicious lesions.?BREASTS:? normal, no dimpling, no discharge, no drainage, no masses palpable bilaterally, nontender.?ABDOMEN:? soft, non-tender, non distended without masses or hepatosplenomegay.?RECTAL:?deferred due to recent colonoscopy.?BACK:? no costovertebral angle tenderness.?FEMALE GENITOURINARY:?Vulva without lesions or masses, vagina pink without abnormal discharge, lesions or masses, cervix appears normal and is not tender to palpation, uterus is normal size, mobile, nontender and anteverted, ovaries are not palpable.?NEUROLOGIC:? alert and oriented, gait normal.?PSYCH:? alert, oriented, cognitive function intact, cooperative with exam, good eye contact, mood/affect full range, speech clear.? Assessment: * Assessment: 1.?Encounter for gynecologic al examination (general) (routine) without abnormal findings - Z01.419 (Primary)???2.?Encounter for screening mammogram for malignant neoplasm of breast - Z12.31???3.?Postmenopausal atrophic vaginitis - N95.2??? Plan: * Treatment: ? Value Reference Range ?. . - * ?HPV Aptima Negative Negative - * vaginal/ cervicalThis lab wa s reviewed by ARABELLA HAILE on 07/15/2024 at 10:34 AM EST Notes: During the visit, the following areas of concern were addressed: Discussed cervical cancer screening with either cytology alone every 3 years or high risk HPV co-testing every 5 years as per ASCCP guidelines. Advised continued annual pelvic exams. Patient encouraged to increase her level of exercise. SBE technique encouraged/taught. Patient reminded when annual mammogram is due. Patient encouraged to keep colon screening up to date. ??2.?Encounter for screening mammogram for malignant neoplasm of breast?Imaging: MM Digital Screening Mammogram 3D3.?Postmenopausal atrophic vaginitis? Start Estradiol Cream, 0.1 MG/GM, 1 gram, Vaginal, twice weekly, 365 days, 42.5 grams, Refills 4, Notes to Pharmacist: Maintenance dose.?? * Procedure Codes:? * Follow Up:?1 Year (Reason: Y early Mimeographer Exam) * Images: Billing Information: * Visit Code:? 73754 Preventive Care Est Pt. Age 40-64. * Procedure Codes:? * Sign off status: Completed true * Provider:?ARABELLA HAILE MD Date:?2023 Generated for Neida ledezma/Kilo/Rheasmitting on:?11/10/2024 04:59 PM EDT History and Physical Notes * HPI (History of Present Illness) Category Sub-Category Detail Notes Category Not es Constitutional Vasile is a 63yo who presents for her yearly obstetrician gynecologist exam. She has been in state of good health since her last exam. She has had a flare of ulcerative colitis, just started a biologic. She has the following concerns: none She has received the [employer] Covid-19 vaccine. Relationship status: for 36 years. She is sexually active. Sexual partner(s): male. She does not wish to have STI testing. She does report vaginal dryness - she uses lubricant with fair relief - she would be interested in trying vaginal hormones. She does not have hot flashes/night sweats. She has had friends and family who have been raving about hormone therapy. She states that her friends feel younger and more vibrant with more energy and less bone aching. Discussed their use for control of hot flashes/night sweats. Discussed risks of breast cancer and cardiac events with hormone use. The patient has not had an abnormal pap smear within the last 5 years. Her most recent pap smear was 07/15/19 - NIL, neg HR HPV. Next due in 2023. She has not been diagnosed with breast cancer. She does have a family history of breast cancer - paternal first cousin. Her last mammogram was 09/16/2023, at [facility] office. She has heterogeneously dense breast tissue, with a Tyrer Cuzick risk of 21.3%. We discussed additional screening, as breast MRI or breast ultrasound, but she declines. She does have a family history of colon cancer - paternal uncle. She a has had a colonoscopy. The last colonoscopy was in April 2024 - severe UC flare. Follow up in 6 months. The patient does not currently exercise. She plans to start lifting weights again. She had been exercising x 5 days/week by cycling, but had a fall this summer. Examination Category Sub-Category Detail Notes Category Not es General Examination GENERAL APPEARANCE: in no ac shikha distress, well developed, well nourished, service delivery manager present in room HEAD: normocephalic, atrau matic NECK/THYROID: neck supple, full ra nge of motion, thyroid normal ABDOMEN: soft, non-tender, no n distended without masses or hepatosplenomegay NEUROLOGIC: alert and oriented, gait normal SKIN: normal, good turgor, no rashes, no suspicious lesions BACK: no costovertebral an gle tenderness BREASTS: normal, no dimpling, no discharge, no drainage, no masses palpable bilaterally, nontender LYMPH NODES: no axillary or supra clavicular adenopathy RECTAL: deferred due to rece nt colonoscopy PSYCH: alert, oriented, cog nitive function intact, cooperative with exam, good eye contact, mood/affect full range, speech clear FEMALE GENITOURINARY: Vulva without lesi ons or masses, vagina pink without abnormal discharge, lesions or masses, cervix appears normal and is not tender to palpation, uterus is normal size, mobile, nontender and anteverted, ovaries are not palpable
--- OUTSIDE RECORDS SUMMARY | 2024-11-10 16:59 | XMS_ITS ---
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 Physical Medications Medication SIG (Take, Route, Frequency, Duration) Notes Start Date End Date Status Wellbutrin SR 200 MG 1 tablet in the morning Orally Once a day for 30 day(s) Active Finasteride 5 MG 1 tablet Orally Once a day for 30 day(s) 0.5 tabs daily Active Levothyroxine Sodium 88 MCG as directed Orally Once a day Active Social History Tobacco Use: Social History [...] Problem Status W/U Status Risk Notes Problem Bilateral tinnitus ([id number] ) Tinnitus, bilateral (H93.13) Active confirmed Vital Signs Temperature 97.1 degrees Fahrenheit 07/01/20 23 Blood pressure systolic 100 mm Hg 07/01/20 23 Blood pressure diastolic 80 mm Hg 023 Height 65 in 07/01/2023 Weight 131 lbs 07/01/2023 BMI 21.80 kg/m2 07/01/2023 Encounters Encounter Location Date Provider Diagnosis [facility] [address] [place] [address] 07/01/2023 ARABELLASam VARGASHAILE Encounter for gynecological examination (general) (routine) without abnormal findings Z01.419 and Encounter for screening mammogram for malignant neoplasm of breast Z12.31 Assessments Encounter Date Diagnosis (ICD Code) Assessment Notes Treatment Notes Treatment Clinical Notes Section Notes 07/01/2023 Encounter for gynecological examination (general) (routine) without [...] to keep colon screening up to date. 07/01/2023 Encounter for screening mammogram for malignant neoplasm of breast (ICD-10 - Z12.31) Plan Of Treatment Treatment Notes Assessment Notes Encounter for gynecological [...] Order Date MM Digital Screening Mammogram 3D 2022 Next Appt Details Follow Up: 1 Year, Reason: Y early Mud Analysis Operator Exam Provider Name:ARABELLA Becker, 07/12/2025 11:00:00 AM, [address], [place], [address], Progress Notes * RAMIREZ ZHENGB:1960 ([age] yo F)Acc No.[id number]:07/01/2023 PROGRESS NOTES Patient:?LUCIA ZHENG Provider:?ARABELLA HAILE MD :1960???Age:62 Y???Sex:Female D ate:07/01/2023 Address:[address] [place], [place] [id number] Pcp:SRIDHAR HERCULES Subjective: * Chief Complaints: * ???Annual COST ACCOUNTANT Physical * HPI: ???Constitutional:? 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 ? She has been in state of good health since her last exam. She has the following concerns: occasional tender breasts. She'd like to have a 3D mammogram this year. She is at elevated risk of breast cancer (TC 21.3%) ? She has received the DocSend Covid-19 vaccine. ? Relationship status: for nearly 36 years. She is sexually active. Sexual partner(s): male. She does not wish to have STI testing. ? She does report vaginal dryness - she uses lubricant with good relief. She does not have rare hot flashes/night sweats. ? The patient has not had an abnormal pap smear within the last 5 years. Her most recent pap smear was 07/15/19 - NIL, neg HR HPV. Next due in 2023. ? She has not been diagnosed with breast cancer. She does have a family history of breast cancer - paternal first cousin. Her last mammogram was 04/30/22. ? She does have a family history of colon cancer - paternal uncle. She a has had a colonoscopy. The last colonoscopy was in December 2021. Follow up in 5 yrs. She likes to get one more regularly, even though insurance doesn't pay, as she has a history of ulcerative colitis. ? The patient does not currently exercise. She had been exercisint x 5 days/week by cycling. * ROS:?Annual Mud Analysis Operator Exam ROS:?Bowel habit changes?denies.?Bladder symptoms?denies.?Vaginal discharge, unusual?denies.?Vaginal itch or odor?denies.?weight or appetite changes?denies.?Chest pains, SOB?denies.?depression?denies.?Breast:?Denies?Breast lump.?Denies?Nipple discharge.?Hematology:?Denies?Swollen glands.?Skin:?Patient denies?changing moles.?Psychiatric:?Admits?Anxiety,?uses breathing techniques.? * Medical History:? * Mud Analysis Operator History:?/ Para?4/4.?Sexual activity?currently sexually active, with men.?Last Pap Smear:?07/15/19 - NIL, neg HR HPV; End of 2015, NIL as per patient.?Mammogram:?04/30/2022 50-75% density, 06/2018, normal as per patient.?Abnormal Pap Smear:?no history of abnormal pap smears.?LMP and menses?post dinah.?History of STD's:?none.?Menarche?13.?Menopause: ?Began at age: ?54 ???Colonoscopy?SUMMER OF 2021, yes, 06/2018 Done Yearly.? * OB History:?Total [...] year??Never (0 point) ?Points?1 ?Interpretation?Negative ???Miscellaneous:?Children: 4. ?no Domestic violence. ?Exercise: yes, Bikes. ?Home smoke detector use: yes, smoke detectors, carbon monoxide detector. ?Housing: owns a home. ?Living with: spouse. ?Marital status: , German. ?Occupation: [employer]. ?Pets: none. ?no Sexual abuse. ?Sexually active: yes, monogamous relationship. ?no Verbal abuse. * Medications:?TakingFinasteri de 5 MG Tablet 1 tablet Orally Once a day, Notes: 0.5 tabs dailyWellbutrin SR 200 MG Tablet Extended Release 12 Hour 1 tablet in the morning Orally Once a dayLevothyroxine Sodium 88 MCG Tablet as directed Orally Once a dayMedication List reviewed and reconciled with the patientTaking Finasteride 5 MG Tablet 1 tablet Orally Once a day, Notes: 0.5 tabs dailyTaking Wellbutrin SR 200 MG Tablet Extended Release 12 Hour 1 tablet in the morning Orally Once a dayTaking Levothyroxine Sodium 88 MCG Tablet as directed Orally Once a dayMedication List reviewed and reconciled with the patient * Allergies:?N.K.D.A.no[Allerg ies Verified] Objective: * Vitals:?Ht: 65 in, Wt:131 lb s, BMI:21.80 Index, BP:100/80 mm Hg, Temp:97.1 F. * Examination: ???General Examination: ?GENERAL APPEARANCE:?in no acute distress, well developed, well nourished, pleater hand present in room.?HEAD:?normocephalic, atraumatic.?NECK/THYROID:?neck supple, full range of motion, thyroid normal.?LYMPH NODES:?no axillary or supraclavicular adenopathy.?SKIN:? normal, good turgor, no rashes, no suspicious lesions.?BREASTS:? normal, no dimpling, no discharge, no drainage, no masses palpable bilaterally, nontender.?ABDOMEN:? soft, non-tender, non distended without masses or hepatosplenomegay.?RECTAL:? normal tone, no masses palpable.?BACK:? no costovertebral angle tenderness.?FEMALE GENITOURINARY:?Vulva without lesions [...] (general) (routine) without abnormal findings - Z01.419 (Primary)?2.?Encounter for screening mammogram for malignant neoplasm of breast - Z12.31? Plan: * Treatment: 2.?Encounter for screening m ammogram for malignant neoplasm of breast?Imaging: MM Digital Screening Mammogram 3D * Procedure Codes:? * Preventive Medicine:?~~~~~~~~~~~~~ STRENGTH TRAINING ~~~~~~~~~~~~~ Anyone, at any fitness level, can and should add strength training to their routine. Strength training is an important part of an overall fitness program, mainly because lean muscle mass naturally diminishes with age. You'll increase the percentage of fat in your body if you don't do anything to replace the lean muscle you lose over time. Strength training can help you preserve and enhance your muscle mass (at any age!), develop strong bones and reduce the risk of osteoporosis, manage or lose weight and increase your metabolism to help you burn more calories. It will also improve your ability to do everyday activities and reduce symptoms of chronic conditions such as arthritis, back pain, obesity, heart disease and diabetes. Some research suggests that regular strength training may help improve thinking and learning skills. Don't be intimidated. You can strength train at home or in the gym, and you have plenty of options. You can rely on your body weight and do many exercises with little or no equipment, like pushups, pullups, planks and leg squats. Or you can go pro and choose to go with resistance tubing (a lightweight tubing that provides resistance when stretched), free weights like barbells and dumbbells, or weight machines at the gym. ~~~~~~~~~~~~~~~~~~~~~~~~~~~~~~~~~~~~~~~~~~~ SARCOPENIA AND THE IMPORTANCE OF STRENGTH TRAINING EXERCISE ~~~~~~~~~~~~~~~~~~~~~~~~~~~~~~~~~~~~~~~~~~~ What is sarcopenia? ~~~~~~~~~~~~ Sarcopenia refers to the process of losing skeletal muscle mass and strength. 'Sarco' is the [place]oese word referring to flesh, and 'penia' means a reduction in amount. Thus, the word describes a progressive weakening of the body caused by a 'change in body compensation in favor of fat and at the expense of muscle.' Everyone, beginning around age 25, starts to lose muscle mass, though the actual symptoms of this loss do not usually begin showing up until around the age of 40 or so. The process begins really picking up speed after the age of 65. In fact, around the age of 40, most women will lose almost a half-pound of muscle every year and replace it with fat. The result of this gradual loss of muscle is an insidious weakening of the body, loss of balance, loss of confidence upon walking, and a reduced ability to recover from near falls. As we lose strength, we become more inactive. This makes sense, because if we have less muscle, it takes much more effort to move, and we fatigue more easily. But also, with loss of strength comes loss of balance and stability. The fear of falling keeps many people sedentary, and a sedentary lifestyle opens the door for chronic illness. ~~~~~~~~~~~~~~ Take back your muscle ~~~~~~~~~~~~~~ And now for great news: you can delay sarcopenia and even reverse it. How? By lifting weights. Even though you cannot grow new muscles cells to replace the ones you have already lost, you can develop the ones that you have left. In fact, you can become stronger than you ever have in your life by simply beginning a strength training program. No matter how old you are, it is not too late to start. Even patients in nursing homes have seen transformation. After strength training, bedridden patients were able to begin walking with walkers, walker-dependent patients graduated to canes, and so on. And no matter how young you are, it is not too early to start! By starting early, you can significantly delay the effects of sarcopenia. As you begin lifting weights, you will notice a transformation in your body. You will have more energy, you will perform everyday tasks with noticeably more ease and your clothes will begin sagging on you, because you will be building muscle and burning up the fat deposits. You will have greater balance and more confidence. And perhaps best of all is the insurance policy you pay premiums on every time you choose to lift, because you are laying a strong, solid foundation for your later years. You are laying up health, independence and the ability to live well, not just long. DON'T LET ANOTHER DAY GO BY THAT YOU ARE LOSING MUSCLE. Take it back, and get ready to feel better than you ever have!. * Follow Up:?1 Year (Reason: Y early Mud Analysis Operator Exam) * Images: Billing Information: * Visit Code:? 16568 Preventive Care Est Pt. Age 40-64. * Procedure Codes:? 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 She has been in state of good health since her last exam. She has the following concerns: occasional tender breasts. She'd like to have a 3D mammogram this year. She is at elevated risk of breast cancer (TC 21.3%) She has received the DocSend Covid-19 vaccine. Relationship status: for nearly 36 years. She is sexually active. Sexual partner(s): male. She does not wish to have STI testing. She does report vaginal dryness - she uses lubricant with good relief. She does not have rare hot flashes/night sweats. The patient has not had an abnormal pap smear within the last 5 years. Her most recent pap smear was 07/15/19 - NIL, neg HR HPV. Next due in 2023. She has not been diagnosed with breast cancer. She does have a family history of breast cancer - paternal first cousin. Her last mammogram was 04/30/22. She does have a family history of colon cancer - paternal uncle. She a has had a colonoscopy. The last colonoscopy was in December 2021. Follow up in 5 yrs. She likes to get one more regularly, even though insurance doesn't pay, as she has a history of ulcerative colitis. The patient does not currently exercise. She had been exercisint x 5 days/week by cycling. Examination Category Sub-Category Detail Notes Category Not es General Examination GENERAL APPEARANCE: in no ac mi'kmaq distress, well developed, well nourished, pleater hand present in room HEAD: normocephalic, atrau matic [...] no axillary or supra clavicular adenopathy RECTAL: normal tone, no mass es palpable PSYCH: alert, oriented, cog nitive function intact, cooperative with exam, good eye contact, mood/affect full range, speech clear FEMALE GENITOURINARY: Vulva without lesi ons or masses, vagina pink without abnormal discharge, lesions or masses, cervix appears normal and is not tender to palpation, uterus is normal size, mobile, nontender and anteverted, ovaries are not palpable
--- OUTSIDE RECORDS SUMMARY | 2024-11-10 16:59 | XMS_ITS | Clinical Summary ---
Author Organization [facility] [address] [facility] Address [address] [place] [address] Phone Care Team Providers Care Polisher Apprentice Name Role Phone Joseph Palencia Primary Care Provider [phone] Allergies No known active allergies Medications biotin 10,000 mcg capsule Take by mouth. Act finesse finasteride (PROSCAR) 5 mg tablet Take 2.5 mg by mouth 1 (one) time each day. Active levothyroxine (SYNTHROID, LEVOTHROID) 75 mcg tablet Take 1 tablet (75 mcg total) by mouth 1 (one) time each day. Active minoxidiL (LONITEN) 2.5 mg tablet TAKE 1/4 TABLET BY MOUTH DAILY Active Wegovy 1.7 mg/0.75 mL injection pen INJECT 1.7 MG (0.75 ML) SUBCUTANEOUSLY EVERY WEEK FOR 4 WEEKS Active traMADoL (ULTRAM) 50 mg tablet TAKE 1 TABLET BY MOUTH EVERY 6 HOURS DIRECTED FOR 7 DAYS Active tretinoin (RETIN-A) 0.05 % cream Active cyanocobalamin (VITAMIN B-12) 250 mcg tablet Take 1 tablet (250 mcg total) by mouth 1 (one) time each day. Active calcium carbonate-luzmaria min D 500 mg-5 mcg (200 unit) per tablet Take 1 tablet by mouth 1 (one) time each day. Active upadacitinib (Rinvoq) 45 mg tablet extended release 24 hrIndications: Ulcerative colitis without complications, unspecified location (CMS/HCC V24, CMS/HCC V28) Take 45 mg by mouth 1 (one) time each day. 30 tablet 1 025 2024 Active upadacitinib (Rinvoq) 45 mg tablet extended release 24 hrIndications: Ulcerative colitis without complications, unspecified location ([facility] V24, [facility] V28) Take 45 mg by mouth 1 (one) time each day. 30 tablet 2 025 2024 Discontinued upadacitinib (Rinvoq) 45 mg tablet extended release 24 hrIndications: Ulcerative colitis without complications, unspecified location ([facility] V24, [facility] V28) Take 45 mg by mouth 1 (one) time each day. 30 tablet 2 025 2024 Discontinued(R eorder) Active Problems Problem Noted Date Diagnosed Date Crohn's disease ([facility] V24, [facility] V28) 06/22 Encounters Date Type Department Care Team Description 10/25/2024 Telephone Gastroenterology - [address] [phone] Michael Steven MD 10/21/2024 Telephone Gastroenterology - [address] [facility] [address] [phone] Rebekah Purvis MA RINVOQ 10/19/2024 Telephone Gastroenterology - [address] [facility] [address] [address] Michael Steven MD 10/14/2024 10:40 AM EDT Office Visit Gastroenterology - [address] [address] Jeanna Stewart NP Pure hypercholesterolemia (Primary Dx); Ulcerative colitis without complications, unspecified location ([facility] V24, [facility] V28) 09/23/2024 Telephone Gastroenterology - [address] [address] Rebekah Purvis MA RINVOQ 09/17/2024 Telephone Gastroenterology - [address] [address] Rebekah Purvis [place] insurance pa 09/15/2024 Telephone Gastroenterology - [address] [facility] [address] [place] [address] Michael Steven MD 08/24/2024 11:00 AM EST - 08/24/2024 11:59 PM EST Hospital Encounter [facility] [address] [place] [phone] Michael Steven MD Crohn's disease without complication, unspecified gastrointestinal tract location (CMS/HCC V24, CMS/HCC V28) (Primary Dx) Discharge Disposition: Home or Self Care from Last 3 Months Social History Tobacco Use Types Packs/Day Years Used Date Smoking Tobacco: Never Assessed Comments Unknown Sex and Gender Information Value Date Recorded Sex Assigned at Female 08/09/2024 1:00 PM EST Legal Sex Female 8:52 PM EST Gender Identity Female 08/09/2024 1:00 PM EST Sexual Orientation Straight 08/09/2024 1: 00 PM EST Last Filed Vital Signs Vital Sign Reading Time Taken Comments Blood Pressure 112/76 08/24/2024 11:09 AM EST Pulse 96 08/24/2024 11:09 AM EST Temperature 36.8 ??C (98.3 ??F) 08/24/2024 11:[address] Respiratory Rate 18 07/14/2024 10:15 AM EST Oxygen Saturation 98% 08/24/2024 11:09 AM EST Inhaled Oxygen Concentration - - Weight 59 kg (130 lb) 10/14/2024 10:32 AM EDT Height 165.1 cm (5' 5 ) 10/14/2024 10:32 AM EDT Body Mass Index 21.63 10/14/2024 10:32 AM EDT Plan of Treatment Upcoming Encounters Date Type Department Care Team (Late st Contact Info) Description 01/11/2025 11:20 AM EDT Office Visit Gastroenterology - [address] [place] [phone] Matilde Quinn PA [address] [place] [address] Health Maintenance Due Date Last Done Comments Cervical Cancer Screening: Pap Smear 1982 Pneumococcal Vaccine: 50+ Years (2 of 2 - PCV) 12/17/2013 12/17/2012 Zoster Vaccines (2 of 2) 10/29/2022 09/03/2022 COVID-19 Vaccine (4 - season) 2024 07/19/2021, 11/09/2020, 10/19/2020 HIV Screening 05/12/2024 Hepatitis C Screening 05/12/2024 Social Influencers of Health Screening 05/12/2024 Hepatitis B Vaccines (2 of 3 - Hep B Twinrix 3-dose series) 06/25/2024 05/28/2024 Influenza Vaccine (Season Ended) 2025 07/05/2022, 05/10/2021, 05/24/2020, Additional history exists Depression Screening 08/24/2025 08/24/2024 Breast Cancer Screening 09/16/2025 09/16/2023 DTaP,Tdap,and Td Vaccines (2 - Td or Tdap) 01/20/2028 01/19/2018 Cholesterol Screening (Lipid Panel) 10/14/2029 10/14/2024, 12/16/2023 Colorectal Cancer Screening: Colonoscopy 10/14/2034 10/14/2024 RSV Immunization Adult Patients (1 - 1-dose 75+ series) 2036 Pneumococcal Vaccine: Pediatrics (0 to 5 Years) and At-Risk Patients (6 to 64 Years) Aged Out 12/17/2012 No longer eligible based on patient's age to complete this topic Hepatitis A Vaccines Aged Out 05/28/2024 No long er eligible based on patient's age to complete this topic HIB Vaccines Aged Out No longer eligi ble based on patient's age to complete this topic HPV Vaccines Aged Out No longer eligi ble based on patient's age to complete this topic IPV Vaccines Aged Out No longer eligi ble based on patient's age to complete this topic MMR Vaccines Aged Out No longer eligi ble based on patient's age to complete this topic Meningococcal ACWY Vaccine Aged Out N o longer eligible based on patient's age to complete this topic Meningococcal B Vaccine Aged Out No l onger eligible based on patient's age to complete this topic RSV Immunization Patients Under 20 months Aged Out No longer eligible based on patient's age to complete this topic Varicella Vaccines Aged Out No longer eligible based on patient's age to complete this topic Procedures Procedure Name Priority Date/Time Associated Diagnosis Comments EXTERNAL ENDOSCOPY REPORT Routine 10/14/2024 1:23 PM EDT EXTERNAL COLONOSCOPY REPORT Routine 10/14/2024 1:18 PM EDT CBC WITH AUTO DIFFERENTIAL Routine 10/14/2024 11:40 AM EDT Other ulcerative colitis without complications ([facility] V24, [facility] V28) CHOLESTEROL, TOTAL Routine 10/14/2024 11:40 AM EDT Pure hypercholesterolemia C-REACTIVE PROTEIN Routine 10/14/2024 11:40 AM EDT Other ulcerative colitis without complications (CMS/HCC V24, [facility] V28) COMPREHENSIVE METABOLIC PANEL Routine 10/14/2024 11:40 AM EDT Other ulcerative colitis without complications (CMS/HCC V24, [facility] V28) CBC AND DIFFERENTIAL Routine 10/14/2024 11:40 AM EDT Other ulcerative colitis without complications (CMS/HCC V24, [facility] V28) from Last 3 Months Results * External Endoscopy (10/14/2024 1:23 PM EDT) Anatomical Region Laterality Modality Endoscopy us Historical Provider GI~PROCEDURE ORDERABLES F inal Result * External Colonoscopy Report (10/14/2024 1:18 PM EDT) Anatomical Region Laterality Modality Endoscopy us Historical Provider GI~PROCEDURE ORDERABLES F inal Result * (ABNORMAL) CBC auto differential (10/14/2024 11:40 AM EDT) WBC 5.7 4.8 - 10.8 K/[facility] HEMETOLOGY METHOD 10/14/2024 12:[address] [facility] RBC 4.60 3.80 - 4.80 M/[facility] LAB HEMETOLOGY METHOD 10/14/2024 12:[address] [facility] Hemoglobin 11.8 11.5 - 16.0 g/dL LAB HEMETOLOGY METHOD 10/14/2024 12:[address] [facility] Hematocrit 39.9 35.0 - 47.0 % LAB HEMETOLOGY METHOD 10/14/2024 12:[address] [facility] MCV 87.1 79.0 - 98.0 FL LAB HEMETOLOGY METHOD 10/14/2024 12:[address] [facility] MCH 25.8(L) 27.0 - 32.0 pcg LAB HEMETOLOGY METHOD 10/14/2024 12:[address] [facility] MCHC 29.6(L) 32.0 - 37.0 g/dL LAB HEMETOLOGY METHOD 10/14/2024 12:[address] [facility] RDW 16.1(H) 11.0 - 15.0 % LAB HEMETOLOGY METHOD 10/14/2024 12:[address] [facility] Platelets 442(H) 130 - 400 K/mcL LAB HEMETOLOGY METHOD 10/14/2024 12:[address] [facility] MPV 8.6 7.0 - 11.0 FL LAB HEMETOLOGY METHOD 10/14/2024 12:[address] [facility] NRBC 0.0 <1.0 % LAB HEMETOLOGY METHOD 10/14/2024 12:[address] [facility] NRBC Absolute 0.00 <0.10 K/mcL LAB HEMETOLOGY METHOD 10/14/2024 12:[address] [facility] Neutrophils Relative 38.5 % LAB HEMETOLOGY METHOD 10/14/2024 12:[address] [facility] Lymphocytes Relative 46.8 % LAB HEMETOLOGY METHOD 10/14/2024 12:[address] [facility] Monocytes Relative 11.3 % LAB HEMETOLOGY METHOD 10/14/2024 12:[address] [facility] Eosinophils Relative 2.5 % LAB HEMETOLOGY METHOD 10/14/2024 12:[address] [facility] Basophils Relative 0.5 % LAB HEMETOLOGY METHOD 10/14/2024 12:[address] [facility] Immature Granulocytes Relative 0.4 % LAB HEMETOLOGY METHOD 10/14/2024 12:[address] [facility] Neutrophils Absolute 2.19 1.50 - 7.00 K/mcL LAB HEMETOLOGY METHOD 10/14/2024 12:[address] [facility] Lymphocytes Absolute 2.66 1.00 - 5.00 K/mcL LAB HEMETOLOGY METHOD 10/14/2024 12:[address] [facility] Monocytes Absolute 0.64 0.20 - 1.00 K/mcL LAB HEMETOLOGY METHOD 10/14/2024 12:[address] [facility] Eosinophils Absolute 0.14 0.00 - 0.50 K/mcL LAB HEMETOLOGY METHOD 10/14/2024 12:[address] [facility] Basophils Absolute 0.03 0.00 - 0.20 K/mcL LAB HEMETOLOGY METHOD 10/14/2024 12:[address] [facility] Immature Granulocytes Absolute 0.02 0.00 - 0.03 K/mcL LAB HEMETOLOGY METHOD 10/14/2024 12:[address] [facility] Blood Venous blood specimen / Unknown Venipuncture / Unknown 10/14/2024 11:40 AM EDT 10/14/2024 12:12 PM EDT Michael Steven MD LAB BLOOD ORDERABLES Final Resu lt [facility] [address] [place] [address], * C-reactive protein (10/14/2024 11:40 AM EDT) C-Reactive Protein <0.29 <=0.50 mg/dL LAB CHEMISTRY METHOD 10/14/2024 3:[address] [facility] Blood Venous blood specimen / Unknown Venipuncture / Unknown 10/14/2024 11:40 AM EDT 10/14/2024 12:11 PM EDT Michael Steven MD LAB BLOOD ORDERABLES Final Resu lt Performing Organization Address [facility]/ZIP Co de Phone Number [facility] [address] [place] [address], * (ABNORMAL) Cholesterol, total (10/14/2024 11:40 AM EDT) Pathologist [facility] Cholesterol 204(H) 0 - 200 mg/dL LAB CHEMISTRY METHOD 10/14/2024 3:[address] [facility] Blood Venous blood specimen / Unknown Venipuncture / Unknown 10/14/2024 11:40 AM EDT 10/14/2024 12:11 PM EDT Jeanna Stewart NP LAB BLOOD ORDERABLES Final Re sult Performing Organization Address [facility]/ZIP Co de Phone Number [facility] [address] [place] [address], [place] [phone] * Comprehensive metabolic panel (10/14/2024 11:40 AM EDT) Pathologist [facility] Sodium 138 133 - 145 mmol/L LAB CHEMISTRY METHOD 10/14/2024 3:[address] [facility] Potassium 4.3 3.5 - 5.5 mmol/L LAB CHEMISTRY METHOD 10/14/2024 3:23 PM [facility] Chloride 105 96 - 110 mmol/L LAB CHEMISTRY METHOD 10/14/2024 3:23 PM [facility] CO2 25 21 - 32 mmol/L LAB CHEMISTRY METHOD 10/14/2024 3:23 PM [facility] Anion Gap 8 3 - 11 LAB CHEMISTRY METHOD 10/14/2024 3:23 PM [facility] Glucose 86 70 - 100 mg/dL LAB CHEMISTRY METHOD 10/14/2024 3:23 PM [facility] BUN 12 5 - 25 mg/dL LAB CHEMISTRY METHOD 10/14/2024 3:23 PM [facility] Creatinine 0.86 0.50 - 1.10 mg/dL LAB CHEMISTRY METHOD 10/14/2024 3:23 PM [facility] eGFR 76 >=60 mL/min/1. 73m2 LAB CHEMISTRY METHOD 10/14/2024 3:23 PM [facility] Comment:Calculation based on the??Chronic Kidney Disease Epidemiology Collaboration (CKD-EPI) equation refit??without adjustment for race. BUN/Creatinine Ratio 14.0 LAB CHEMISTRY METHOD 10/14/2024 3:23 PM [facility] Calcium 9.2 8.5 - 10.5 mg/dL LAB CHEMISTRY METHOD 10/14/2024 3:23 PM [facility] AST (SGOT) 19 10 - 42 unit/L LAB CHEMISTRY METHOD 10/14/2024 3:23 PM [facility] ALT (SGPT) 50 10 - 60 unit/L LAB CHEMISTRY METHOD 10/14/2024 3:23 PM [facility] Alkaline Phosphatase 68 42 - 121 unit/L LAB CHEMISTRY METHOD 10/14/2024 3:23 PM [facility] Total Protein 7.3 6.0 - 8.0 g/dL LAB CHEMISTRY METHOD 10/14/2024 3:[address] [facility] Albumin 3.4 3.2 - 5.0 g/dL LAB CHEMISTRY METHOD 10/14/2024 3:[address] [facility] Total Bilirubin 0.4 0.0 - 1.4 mg/dL LAB CHEMISTRY METHOD 10/14/2024 3:[address] [facility] Blood Venous blood specimen / Unknown Venipuncture / Unknown 10/14/2024 11:40 AM EDT 10/14/2024 12:11 PM EDT us Michael Steven MD LAB BLOOD ORDERABLES Final Resu lt [facility] [address] [place] [address], from Last 3 Months Insurance BLUE CROSS - ID Care Teams Polisher Apprentice Relationship Specialty Start Date End Date Joseph Palencia PA PCP - General Physician Patent Attorney 06/10/24
--- OUTSIDE RECORDS SUMMARY | 2024-11-10 16:59 | XMS_ITS | Patient Health Record ---
Author Organization [facility] Address [address] [place] [address] Care Team Providers Care Holder Pile Driving Name Role Phone ANABEL KELLEY Primary Care Provider ARABELLA Garcia Unavailable [phone] Allergies No Known Allergies Results Component Value Reference Range Notes [id number] No Culture 30 Plus Reviewed date:07/15/2024 10:34:13 AM Interpretation: Performing Lab:[facility], [address], [address], [place], Phone - [phone], Director - [facility] Notes/Report: Clinical Information:vaginal/ cervical [id number] Dates / Results....07/15/19 No. of containers..01 ThinPrep Vial DIAGNOSIS: NEGATIVE FOR INTRAEPITHELIAL LESION OR MALIGNANCY. CELLULAR CHANGES ASSOCIATED WITH ATROPHY ARE PRESENT. THIS SPECIMEN WAS RESCREENED PART OF OUR ADVANCED DEVELOPER PROGRAM. Specimen adequacy: Satisfactory for evaluation. Endocervical component may not be distinguished in cases of atrophy. Areas of partially obscuring inflammatory exudate are present. Clinician provided ICD10: Z0 1.419 Performed by: Kerri Espino ytotechnologist (ASCP) QC reviewed by: Sindhu barron, Alumina Plant Supervisor (ASCP) . . Note: The Pap smear [...] Reviewed date:07/15/2024 10:36:07 AM Interpretation: Performing Lab:[facility] [place], [address], [address], [place], Phone - [phone], Director - [facility] Notes/Report: Clinical Information:vaginal/ cervical [id number] Dates / Results....07/15/19 No. of containers..01 ThinPrep Vial Reason For Referral No Information Medications Medication SIG (Take, Route, Frequency, Duration) Notes Start Date End Date Status Estrace 0.1 MG/GM 1 gram Vaginal nightly for 14 days Loading dose 07/06/2024 Active Vitamin D Active Estradiol 0.1 MG/GM 1 gram Vaginal twice weekly for 365 days Maintenance dose 07/06/2024 Active Entyvio Active Calcium Active Minoxidil 2.5 MG 1 tablet Orally Twice a day Active Wegovy 1.7 MG/0.75ML 0.75 mL Subcutaneous Active Levothyroxine Sodium 88 MCG as directed Orally Once a day Active Finasteride 5 MG 1 tablet Orally Once a day for 30 day(s) 0.5 tabs daily Active Social History Tobacco Use: Social History [...] Status Risk Notes Problem Postmenopausal atrophic vaginitis (22927389) Postmenopausal atrophic vaginitis (N95.2) Active confirmed Problem Bilateral tinnitus (1061336881801) Tinnitus, bilateral (H93.13) Active confirmed Problem Family history of malignant neoplasm of gastrointestinal tract (198688917) Family history of malignant neoplasm of digestive organs (Z80.0) Active confirmed Problem Family history of malignant neoplasm of breast (590311986) Family history of malignant neoplasm of breast (Z80.3) Active confirmed Vital Signs Temperature 97.5 degrees Fahrenheit 07/06/2024 Blood pressure diastolic 74 mm Hg 07/06/2024 Height 65 in 07/06/2024 Blood pressure systolic 102 mm Hg 07/06/2024 Weight 121 lbs 07/06/2024 BMI 20.13 kg/m2 07/06/2024 Encounters Encounter Location Date Provider Diagnosis [address] [place] [address] 07/06/2024 ARABELLA HAILE Encounter for gynecological examination [...] vaginitis (ICD-10 - N95.2) Plan Of Treatment Pending Test Test Name Order Date Screening Bilateral Breast Ultrasound MM Digital Screening Mammogram 3D 2018 MM Digital Screening Mammogram 3D 2020 MM Digital Screening Mammogram 3D 2021 MM Digital Screening Mammogram 3D 2022 MM Digital Screening Mammogram 3D 2023 Next Appt Details Provider Name:ARABELLA Becker, 07/12/2025 11:00:00 AM, [address], [address], [place], [address], Insurance Providers Payer Name Payer Address Payer Phone Subscriber Number Group Number Insured Name Patient Relationship to Insured Coverage Start Date Coverage End Date [employer] [address] [place] [address] [id number] WILLIS ZHENG Spouse - patient is the spouse of the insured Medical (General) History Medical History History ICD Code Hypothyroidism, unspecified E03.9 Ulcerative colitis, unspecified with fis alfonso K51.913 Unspecified osteoarthritis, unspecified site M19.90 Tinnitus, bilateral H93.13 Other specified disorders of bone densit y and structure, unspecified site M85.80 Surgical History Surgery Date(Month/Year) Breast Bx colonoscopy Hospitalization History Reason Date(Month/Year) 4 Vaginal Deliveries Fractured Skull 11/2012
== END 2024-11-10 15:02 | disposition home or self-care (01) ==
LOC: HO.HMCH 14:15
PROVIDERS: PCP Physician Assistant; Visit Provider Physician Assistant
DX: K51.90 Ulcerative colitis, unspecified, without complications (principal); E66.3 Overweight; F41.1 Generalized anxiety disorder; E78.9 Disorder of lipoprotein metabolism, unspecified; E03.9 Hypothyroidism, unspecified

== ENCOUNTER → 2024-11-10 14:15 | Outpatient (BNVA) | payer BC, SELFPAY | PROVIDERS: PCP Physician Assistant; Visit Provider Physician Assistant | DX: K51.90 Ulcerative colitis, unspecified, without complications (principal); E66.3 Overweight; F41.1 Generalized anxiety disorder; E78.9 Disorder of lipoprotein metabolism, unspecified; E03.9 Hypothyroidism, unspecified; Z79.899 Other long term (current) drug therapy | CPT/HCPCS: 96127 ==

== ENCOUNTER 2024-12-29 13:17 | Outpatient (AMB) | payer BC, SELFPAY ==
--- NOTE | 2024-12-29 13:22 | A.OFFPC_ITS ---
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 Required: No Accompanied by: Self / Same As Patient Allergies No Known Allergies Allergy (Verified 12/29/24 13:37) Medication List - Last Reconciled 12/29/24 by Joseph Palencia PA-C bimatoprost 0.03% topical DAILY bupropion HCl XL (Wellbutrin XL) 300 mg PO QAM 90 days cyclobenzaprine 5 mg PO BID 7 days estradiol 0.01%(0.1mg/gram) vaginal finasteride 5 mg PO DAILY levothyroxine 75 mcg PO DAILY minoxidil mg PO semaglutide (weight loss) (Wegovy) 1 mg (0.5 mL) subcut QWEEK 4 weeks triamcinolone acetonide 0.5% 1 appl topical DAILY 30 days upadacitinib ER (Rinvoq) 45 mg PO DAILY Tobacco use date assessed: 12/29/24 Dental Screening Dental Screen Date: 12/29/24 Did you have a dental visit in the last 12 months?: Yes Did you have a dental problem in the last 6 months where you did not have access to dental care?: No Was dental information given to patient?: Patient has dentist HPI Annual PE HPI Details Lucia is a 64-year-old female here today for routine annual physical. ? ? ? . Pmhx significant for Hypothyroid, UC, hyperlipidemia, anxiety, hyperlipidemia vit D def. ? .. ?? ? Overweight: She has ceased Wegovy use a few months before this visit due to cost considerations and adverse effects such as hair loss and fatigue, noting these changes coincide with increased cholesterol and blood pressure levels. Historical context reveals a stabilized state of ulcerative colitis with non- overlapping therapeutic regimens of Entyvio and Rinvoq showing success. Complaints of insulin resistance and a slow metabolism complicate weight management, leading to the patient's anxiety over returning to past unhealthy weight levels. WEGOVY JUSTIFICATION-->>> She has noted benefit of controlled cholesterol, meeting weight goal, better self-esteem and decreased depression and anxiety. Also has noted to have a low TSH thus reducing her her levothyroxine dose. ? Hypothyroid:? Patient continues on levothyroxine 75 mcg. Will recheck TSH to assure normal? Patient having difficulty with losing weight.? .. ? Anxiety: Patient reports as of late her anxiety has been very elevated due to home family stressors.? She does report her anxiety has been somewhat on manageable at times though continues on Wellbutrin.? .. ? UC; Followed by Dr Bland, And UC has been active as of late, has followed up with house calls nurse and continues on treatment.. She reports her inflammatory bowel disease has been fairly well controlled lately after she has finished treatment. ? .. ? Hyperlipidemia: Most recent lipid panel taken (nonfasting) showing a slightly borderline high cholesterol. PLAN: Plan on getting a true fasting lipid panel to ensure appropriate values of her total cholesterol and LDL. Will continue to work on lifestyle modifications on reducing high cholesterol foods in her diet. Mammo - UTD with Mammo- gets done at [facility] .. ? Colonoscopy: Patient receives annual colonoscopies due to her history of?UC- most recent colonoscopy done in December of 2021 ? . ? [facility]: Does see a [facility] annually. .. Vaccine: UTD with COVID and Tdap. 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 1. Little interest or pleasure in doing things: not at all 2. Feeling down, depressed, or hopeless: not at all 3. Trouble falling or staying asleep, or sleeping too much: not at all 4. Feeling tired or having little energy: not at all 5. Poor appetite or overeating: not at all 6. Feeling bad about yourself - or that you are a failure or have let yourself or your family down: not at all 7. Trouble concentrating on things, such as reading the newspaper or watching television: not at all 8. Moving or speaking so slowly that other people could have noticed. Or the opposite - being so fidgety or restless that you have been moving around a lot more than usual: not at all 9. Thoughts that you would be better off or of hurting yourself in some way: not at all Total score: 0 Depression Screening Interpretation: Negative Depression Screening Done: Yes 44753 - PHQ-9 Billing: Yes Source: Developed by Drs. Frank Hirsch, Radha José, Zach Carter and colleagues, with an educational jose roberto from [employer]. Thrive Questionnaire Date Thrive assessed: 12/29/24 I am a: Patient What is your living situation today?: I have a steady place to live Within the past 12 months, did the food you bought not last and you didn't have the money to get more?: Never true Within the past 12 months, did you worry whether your food would run out before you got money to buy more?: Never true Do you have trouble paying for medicines?: No Do you have trouble getting transportation to medical appointments?: No Do you have trouble paying your heating and electricity bill?: No Do you have trouble taking care of your child, family member or friend?: No Do you have trouble with day-to-day activities such as bathing, preparing meals, shopping, managing finances, etc.?: No Are you currently unemployed and looking for a job?: No Are you interested in more education?: No Please select the resources that you would like help with: None Currently or been in a relationship where the following occur: No concerns reported THRIVE Score: 0 AUDIT C Alcohol Use Questionnaire (AUDIT-C) 1. How often do you have a drink containing alcohol?: Never 3. How often do you have six or more drinks on one occasion?: Never Total Score: 0 GABE-7 AMB Questionnaire GABE-7 Date GABE - 7 assessed: 12/29/24 Feeling nervous, anxious, or on edge: 0 = Not at all Not being able to stop or control worryin = Not at all Worrying too much about different things: 0 = Not at all Trouble relaxin = Not at all Being so restless that it is hard to sit still: 0 = Not at all Becoming easily annoyed or irritable: 0 = Not at all Feeling afraid as if something awful might happen: 0 = Not at all Total GABE-7 score (0-4 normal; 5-9 mild; 10-14 moderate; 15-21 severe): 0 Source: Developed by Drs. Frank Hirsch, Radha José, Zach Carter and colleagues, with an educational jose roberto from [employer]. GABE-7 Assessment Billing GABE-7 Assessment Tool: GABE-7 Assessment 44872 Review of Systems Const Denies body aches, Denies chills, Denies excessive sweating, Denies fatigue, Denies fever(s) and Denies headache(s) Eyes Denies blurry vision ENT Denies dysphagia, Denies vertigo, Denies dizziness, Denies headache(s), Denies hearing loss and Denies tinnitus Card Denies chest pain, Denies chest pain with activity, Denies syncope, Denies irregular heart rhythm and Denies dyspnea Resp Denies chest congestion, Denies cough, Denies hemoptysis, Denies dyspnea and Denies wheezing GI Denies abdominal pain, Denies melena, Denies hematochezia, Denies coffee ground emesis, Denies dysphagia, Denies diarrhea, Denies nausea and Denies vomiting Denies urinary frequency, Denies dysuria, Denies urinary hesitancy and Denies urinary urgency Musc Denies arthralgias, Denies limited range of motion, Denies muscle cramps and Denies muscle weakness Skin/Breast Denies rash and Denies skin ulcer Neuro Denies Abnormal speech present, Denies confusion, Denies vertigo, Denies dizziness, Denies syncope, Denies headache(s), Denies memory loss and Denies seizure-like activity Psych Denies anxiety, Denies confusion, Denies depression, Denies memory loss, Denies panic attacks and Denies paranoia Endo Denies excessive sweating, Denies fatigue, Denies flushing, Denies polydipsia and Denies polyuria Aller/Immun Denies wheezing Physical exam (Primary Care) Vital Signs: Last Vital Signs Pulse 96 12/29/24 13:23 BP 122/84 12/29/24 13:23 Pulse Ox 97 12/29/24 13:23 Oxygen Delivery Method Room Air 12/29/24 13:23 BMI result Body Mass Index 22.2 Tobacco/Smoking Status: Tobacco use Status Tobacco use date assessed 12/29/24 12/29/24 13:28 Patient Tobacco Use Status Never used Tobacco 12/29/24 13:28 e-Cigarette/Vaping Use Never Used 12/29/24 13:28 PHQ-9: PHQ-9 Score PHQ-9: Total score 0 12/29/24 13:44 Depression Screening Interpretation: Negative Thrive Assessment: Date of Thrive Assessment Date Thrive assessed 12/29/24 12/29/24 13:28 Currently or been in a relationship where the following occur: No concerns reported Const General: cooperative, comfortable, no acute distress, alert and awake; No confusion Orientation/consciousness: oriented to person, oriented to place, patient oriented x3 and No confusion HENMT Head: Yes normocephalic Ears: external ears normal and TM's normal bilaterally Face and sinus: No sinus tenderness Mouth: Normal oral and palatal mucosa present and tongue normal Teeth and gingiva: dentition normal and gingiva normal Throat: Yes posterior oropharynx normal, Yes tonsils normal and Yes uvula midline Eyes Conjunctivae: conjunctivae normal Sclerae: sclerae normal Pupils: Equal, round and reactive pupils present EOM: EOMs intact bilaterally Direct Ophthalmoscopy: No no photophobia Neck Neck: Yes no lymphadenopathy, No tender and Yes no JVD Thyroid: Thyroid normal Carotids: no bruits Chest Chest palpation & inspection: no tenderness Resp Effort & Inspection: normal respiratory effort, no audible wheezes, not labored and no stridor Auscultation: no crackles, no rales, no rhonchi and no wheezes Cardio Jugular venous distension: no JVD Rate: regular rate, not bradycardic and not tachycardic Rhythm: regular rhythm Bruits: no carotid bruits Peripheral pulses: Peripheral pulses 2+ throughout GI Inspection: Yes normal to inspection, No abdominal wall ecchymosis and No visible herniation Palpation (GI): Soft to palpation, nontender, no guarding, not rigid and No hepatosplenomegaly present Auscultation: normoactive bowel sounds General: Yes no CVA tenderness Back/Spine/Pelvis Back: no CVA tenderness and No back tenderness Cervical Spine: cervical ROM normal Thoracic/Lumbar Spine: thoracic and lumbar spine normal to inspection, straight leg raise negative bilaterally, No thoraco-lumbar ROM limited and No lumbar spinal tenderness Skin Lesions: no lesions Rashes: no rashes Wounds: no wounds Neuro General: oriented to person, oriented to place, patient oriented x3, CN's II-XI intact bilaterally and No confusion Cranial nerves: Yes Equal, round and reactive pupils present and Yes Normal accommodation reflex present Cognition (Neuro): normal cognition Speech: No Abnormal speech present Gait exam (Neuro): Normal gait present Motor exam (neuro): 5/5 motor strength present throughout Extrem Right upper extremity: full ROM; no cyanosis Left upper extremity: full ROM; no cyanosis Right lower extremity: no edema Left lower extremity: no edema Psych Appearance: grossly normal Mental Status: mental status grossly normal Affect: normal affect Attitude: cooperative Thought process: Normal thought process present Immunizations pneumoc 20-stef conj-dip cr(PF) 0.5 mL IM syringe Performing Provider: Joseph Palencia PA-C Performing Location: [facility] Administered by: Nai Ulloa CMA on 12/29/24 14:16 Dose Route Admin Location Dispensed Lot Number Expiration Date [facility] Associate Professor Of Economics 0.5 mL IM Left Deltoid 0.5 mL [id number] 09/24/25 Advasense/Entrecard VIS Given Date VIS Provided VIS Publication Date 12/29/24 Single Vaccine 22 Eligibility Eligibility Date Funding Source Not [facility] Eligible 12/29/24 Private Coding Level of Care Code Est Pt Prev Care 40-64y(01523) Diagnoses Annual physical exam Z00.00 Osteopenia of lumbar spine M85.88 Osteopenia location: lumbar spine Ulcerative colitis without complications, unspecified location K51.90 Ulcerative colitis location: unspecified ulcerative colitis location Digestive disease complication type: without complication Overweight (BMI 25.0-29.9) E66.3 Borderline high cholesterol E78.9 Hypothyroidism, unspecified type E03.9 Hypothyroidism type: unspecified Additional Codes GABE-7 Assessment Billing - GABE-7 Assessment Tool: GABE-7 Assessment 68779 ([id number]) PHQ-9 - 69440 - PHQ-9 Billing: Yes ([id number]) Assessment & Plan Assessment & Plan (1) Annual physical exam: Code(s): Z00.00 - Encounter for general adult medical examination without abnormal findings Category: Medical Plan: As per HPI (2) Osteopenia: Code(s): M85.80 - Other specified disorders of bone density and structure, unspecified site Category: Medical Qualifiers: Osteopenia location: lumbar spine Qualified Code(s): M85.88 - Other specified disorders of bone density and structure, other site Plan: The osteopenia management plan involves monitoring bone density with T-score check-ups and supplementing with calcium and vitamin D. Avoid costly [id number] solutions without clinical backing. (3) Ulcerative colitis: Code(s): K51.90 - Ulcerative colitis, unspecified, without complications Category: Medical Qualifiers: Ulcerative colitis location: unspecified ulcerative colitis location Digestive disease complication type: without complication Qualified Code(s): K51.90 - Ulcerative colitis, unspecified, without complications Plan: Patient is followed by gastroenterology (Dr. bland) and underwent treatment in believes now her inflammatory bowel disease is in remission. During treatment for her inflammatory bowel disease she had stopped use of GLP 1 due to fears of side effects and too much weight loss. Now that her inflammatory bowel disease is in remission she would like to restart GLP 1 to maintain weight loss. (4) Overweight (BMI 25.0-29.9): Code(s): E66.3 - Overweight Category: Medical Plan: The patient will attempt to resume Wegovy at a lower dose upon insurance approval while observing health benefits versus side effects. Lifestyle adjustments remain emphasized. -- > GLP-1 medical justification : While taking GLP 1 she admits to much better eating habits, increased energy, better self-esteem and was able to manage her weight a lot better. We did see noticeable effects on lowering cholesterol and reducing her dose of levothyroxine for her hypothyroidism. (5) Borderline high cholesterol: Code(s): E78.9 - Disorder of lipoprotein metabolism, unspecified Category: Medical Plan: Patient continues on lifestyle and dietary modifications to control her borderline high cholesterol. Advised on getting a true fasting value for her borderline high cholesterol. (6) Hypothyroidism: Code(s): E03.9 - Hypothyroidism, unspecified Category: Medical Qualifiers: Hypothyroidism type: unspecified Qualified Code(s): E03.9 - Hypothyroidism, unspecified Plan: Most recent TSH was stable, we have reduced her levothyroxine dose to 75 mcg from 88 mcg due to her losing weight on GLP 1. Continue to monitor TSH to assure normal Orders: Orders Comprehensive [place]. Panel Fast Today E78.9 - Disorder of lipoprotein metabolism, unspecified TSH reflex Free T4 Today E03.9 - Hypothyroidism, unspecified Pneumococcal 20 Immunization Today Z23 - Encounter for immunization Medications: New calcium carbonate (Oyster Shell Calcium) 500 mg PO BID 90 days 180 tabs 1RF M85.88 - Other specified disorders of bone density and structure, other site semaglutide (weight loss) (Wegovy) 1.7 mg (0.75 mL) subcut QWEEK 4 weeks 3 mL 3RF E03.9 - Hypothyroidism, unspecified, E66.3 - Overweight, E78.9 - Disorder o f lipoprotein metabolism, unspecified pneumoc 20-stef conj-dip cr(PF) 0.5 mL IM ONCE 0.5 mL 0RF Z23 - Encounter for immunization
[2024-12-29 13:23] VITALS: BP 122/84; PULSE 96; O2SAT 97; BMI 22.2
--- OUTSIDE RECORDS SUMMARY | 2024-12-29 13:32 | XMS_ITS | Clinical Summary ---
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 Active upadacitinib (Rinvoq) 30 mg tablet extended release 24 hrIndications: Ulcerative colitis without complications, unspecified location (CMS/HCC V24, CMS/HCC V28) Take 30 mg by mouth 1 (one) time each day. 30 tablet 11 025 2025 Active upadacitinib (Rinvoq) 45 mg tablet extended release 24 hrIndications: Ulcerative colitis without complications, unspecified location ([facility] V24, [facility] V28) Take 45 mg by mouth 1 (one) time each day. 30 tablet 1 025 2024 Discontinued Active Problems Problem Noted Date Diagnosed Date Crohn's disease ([facility] V24, [facility] V28) 06/22 Encounters Date Type Department Care Team Description 10/25/2024 Telephone Gastroenterology - [address] [phone] Michael Steven MD 10/21/2024 Telephone Gastroenterology - [address] [place] [phone] Rebekah Purvis MA RINVOQ 10/19/2024 Telephone Gastroenterology - [address] [place] [phone] Michael Steven MD 10/14/2024 10:40 AM EDT Office Visit Gastroenterology - [address] [phone] Jeanna Stewart NP Pure hypercholesterolemia (Primary Dx); Ulcerative colitis without complications, unspecified location ([facility] V24, [facility] V28) from Last 3 Months Social History Tobacco [...] - [address] [place] [phone] Matilde Quinn PA [address] [place] [address] Health Maintenance Due Date Last Done Comments Cervical Cancer Screening: Pap Smear 1982 Pneumococcal Vaccine: 50+ Years (2 of 2 - PCV) 12/17/2013 12/17/2012 Zoster Vaccines (2 of 2) 10/29/2022 09/03/2022 COVID-19 Vaccine ( - season) 2024 07/19/2021, 11/09/2020, 10/19/2020 HIV [...] Other ulcerative colitis without complications (CMS/HCC V24, CMS/HCC V28) CHOLESTEROL, TOTAL Routine 10/14/2024 11:40 AM EDT Pure hypercholesterolemia C-REACTIVE PROTEIN Routine 10/14/2024 11:40 AM EDT Other ulcerative colitis without complications (CMS/HCC V24, CMS/HCC V28) COMPREHENSIVE METABOLIC PANEL Routine 10/14/2024 11:40 AM EDT Other ulcerative colitis without complications (CMS/HCC V24, CMS/HCC V28) CBC AND DIFFERENTIAL Routine 10/14/2024 11:40 AM EDT Other ulcerative colitis without complications (CMS/HCC V24, CMS/HCC V28) from Last 3 Months Results * External Endoscopy (10/14/2024 1:23 PM EDT) Anatomical Region Laterality Modality Endoscopy us Historical Provider GI~PROCEDURE ORDERABLES F inal Result * External Colonoscopy Report (10/14/2024 1:18 PM EDT) Anatomical Region Laterality Modality Endoscopy Historical Provider GI~PROCEDURE ORDERABLES F inal Result * (ABNORMAL) CBC auto differential (10/14/2024 11:40 AM EDT) WBC 5.7 4.8 - 10.8 K/mcL LAB HEMETOLOGY METHOD 10/14/2024 12:25 PM EDT [facility] RBC 4.60 3.80 - 4.80 M/mcL LAB [facility] Hemoglobin 11.8 11.5 - 16.0 g/dL LAB HEMETOLOGY METHOD 10/14/2024 12:25 PM EDT [facility] Hematocrit 39.9 35.0 - 47.0 % LAB HEMETOLOGY METHOD 10/14/2024 12:25 PM EDT [facility] MCV 87.1 79.0 - 98.0 FL LAB HEMETOLOGY METHOD 10/14/2024 12:25 PM [facility] MCH 25.8(L) 27.0 - 32.0 pcg LAB HEMETOLOGY METHOD 10/14/2024 12:25 PM EDT [facility] MCHC 29.6(L) 32.0 - 37.0 g/dL LAB HEMETOLOGY METHOD 10/14/2024 12:25 PM EDT [facility] RDW 16.1(H) 11.0 - 15.0 % LAB HEMETOLOGY METHOD 10/14/2024 12:25 PM [facility] Platelets 442(H) 130 - 400 K/mcL LAB HEMETOLOGY METHOD 10/14/2024 12:25 PM EDT [facility] MPV 8.6 7.0 - 11.0 FL LAB HEMETOLOGY METHOD 10/14/2024 12:25 PM EDT [facility] NRBC 0.0 <1.0 % LAB HEMETOLOGY METHOD 10/14/2024 12:25 PM EDT [facility] NRBC Absolute 0.00 <0.10 K/mcL LAB HEMETOLOGY METHOD 10/14/2024 12:25 PM EDT [facility] Neutrophils Relative 38.5 % LAB HEMETOLOGY METHOD 10/14/2024 12:25 PM EDT [facility] Lymphocytes Relative 46.8 % LAB HEMETOLOGY METHOD 10/14/2024 12:25 PM EDT [facility] Monocytes Relative 11.3 % LAB HEMETOLOGY METHOD 10/14/2024 12:25 PM EDT [facility] Eosinophils Relative 2.5 % LAB HEMETOLOGY METHOD 10/14/2024 12:25 PM EDT [facility] Basophils Relative 0.5 % LAB HEMETOLOGY METHOD 10/14/2024 12:25 PM [facility] Immature Granulocytes Relative 0.4 % LAB HEMETOLOGY METHOD [facility] Neutrophils Absolute 2.19 1.50 - 7.00 K/mcL LAB HEMETOLOGY METHOD 10/14/2024 12:25 PM EDT [facility] Lymphocytes Absolute 2.66 1.00 - 5.00 K/mcL LAB HEMETOLOGY METHOD 10/14/2024 12:25 PM EDT [facility] Monocytes Absolute 0.64 0.20 - 1.00 K/mcL LAB HEMETOLOGY METHOD 10/14/2024 12:25 PM EDT [facility] Eosinophils Absolute 0.14 0.00 - 0.50 K/mcL LAB HEMETOLOGY METHOD 10/14/2024 12:25 PM EDT [facility] Basophils Absolute 0.03 0.00 - 0.20 K/[facility] LAB HEMETOLOGY METHOD 10/14/2024 12:25 PM EDT [facility] Immature Granulocytes Absolute 0.02 0.00 - 0.03 [facility] LAB HEMETOLOGY METHOD 10/14/2024 12:25 PM EDT [facility] Blood Venous blood specimen / Unknown Venipuncture / Unknown 10/14/2024 11:40 AM EDT 10/14/2024 12:12 PM EDT us Michael Steven MD LAB BLOOD ORDERABLES Final Resu lt Performing Organization Address City/[facility]/ZIP Co de Phone Number [facility] [address] [place] [address], * C-reactive protein (10/14/2024 11:40 AM EDT) C-Reactive Protein <0.29 <=0.50 mg/dL LAB CHEMISTRY METHOD 10/14/2024 3:23 PM EDT [facility] Blood Venous blood specimen / Unknown Venipuncture / Unknown 10/14/2024 11:40 AM EDT 10/14/2024 12:11 PM EDT us Michael Steven MD LAB BLOOD ORDERABLES Final Resu lt [facility] [address] [place] [address], [place] [phone] * (ABNORMAL) Cholesterol, total (10/14/2024 11:40 AM EDT) Cholesterol 204(H) 0 - 200 mg/dL LAB CHEMISTRY METHOD 10/14/2024 3:12 PM EDT [facility] Blood Venous blood specimen / Unknown Venipuncture / Unknown 10/14/2024 11:40 AM EDT 10/14/2024 12:11 PM EDT us Jeanna Stewart APPLICATION ADMINISTRATOR LAB BLOOD ORDERABLES Final Re sult [facility] [address] [place] [address], * Comprehensive metabolic panel (10/14/2024 11:40 AM EDT) Sodium 138 133 - 145 mmol/L LAB CHEMISTRY METHOD 10/14/2024 3:23 PM [facility] Potassium 4.3 3.5 - 5.5 mmol/L LAB CHEMISTRY METHOD 10/14/2024 3:23 PM [facility] Chloride 105 96 - 110 mmol/L LAB CHEMISTRY METHOD 10/14/2024 3:23 PM [facility] CO2 25 21 - 32 mmol/L LAB CHEMISTRY METHOD 10/14/2024 3:23 PM [facility] Anion Gap 8 3 - 11 LAB CHEMISTRY METHOD 10/14/2024 3:23 PM [facility] Glucose 86 70 - 100 mg/dL LAB CHEMISTRY METHOD 10/14/2024 3:23 PM [facility] BUN 12 5 - 25 mg/dL LAB CHEMISTRY METHOD 10/14/2024 3:23 PM T [facility] Creatinine 0.86 0.50 - 1.10 mg/dL LAB CHEMISTRY METHOD 10/14/2024 3:23 PM [facility] eGFR 76 >=60 mL/min/1. 73m2 LAB CHEMISTRY METHOD 10/14/2024 3:23 PM [facility] Comment:Calculation based on the??Chronic Kidney Disease Epidemiology Collaboration (CKD-EPI) equation refit??without adjustment for race. BUN/Creatinine Ratio 14.0 LAB CHEMISTRY METHOD 10/14/2024 3:23 PM EDT [facility] Calcium 9.2 8.5 - 10.5 mg/dL LAB CHEMISTRY METHOD [facility] AST (SGOT) 19 10 - 42 unit/L LAB CHEMISTRY METHOD 10/14/2024 3:23 PM T [facility] ALT (SGPT) 50 10 - 60 unit/L LAB CHEMISTRY METHOD 10/14/2024 3:23 PM EDT [facility] Alkaline Phosphatase 68 42 - 121 unit/L LAB CHEMISTRY METHOD 10/14/2024 3:23 PM T [facility] Total Protein 7.3 6.0 - 8.0 g/dL LAB CHEMISTRY METHOD 10/14/2024 3:23 PM [facility] Albumin 3.4 3.2 - 5.0 g/dL LAB CHEMISTRY METHOD 10/14/2024 3:23 PM T [facility] Total Bilirubin 0.4 0.0 - 1.4 mg/dL LAB CHEMISTRY METHOD 10/14/2024 3:23 PM T [facility] Blood Venous blood specimen / Unknown Venipuncture / Unknown 10/14/2024 11:40 AM EDT 10/14/2024 12:11 PM EDT Michael Steven MD LAB BLOOD ORDERABLES Final Resu lt [facility] [address] [place] [address], from Last 3 Months Insurance BLUE CROSS - ID Care Teams [employer] Art Teacher Relationship Specialty Start Date End Date Joseph Palencia PA [address] [place] [phone] PCP - General Physician Scientific Affairs Manager 06/10/24
== END 2024-12-29 14:12 | disposition home or self-care (01) ==
LOC: HO.HMCH 13:17
PROVIDERS: PCP Physician Assistant; Visit Provider Physician Assistant
DX: Z00.00 Encounter for general adult medical examination without abnormal findings (principal); M85.88 Other specified disorders of bone density and structure, other site; K51.90 Ulcerative colitis, unspecified, without complications; E66.3 Overweight; E78.9 Disorder of lipoprotein metabolism, unspecified; E03.9 Hypothyroidism, unspecified; Z23 Encounter for immunization

== ENCOUNTER → 2024-12-29 13:17 | Outpatient (BNVA) | payer BC, SELFPAY | PROVIDERS: PCP Physician Assistant; Visit Provider Physician Assistant | DX: Z00.00 Encounter for general adult medical examination without abnormal findings (principal); R53.83 Other fatigue; E03.9 Hypothyroidism, unspecified; F41.9 Anxiety disorder, unspecified; E78.5 Hyperlipidemia, unspecified; M85.88 Other specified disorders of bone density and structure, other site; K51.90 Ulcerative colitis, unspecified, without complications; E78.9 Disorder of lipoprotein metabolism, unspecified; Z23 Encounter for immunization | CPT/HCPCS: 90471; 90677; 96127 ==

== ENCOUNTER 2025-05-04 10:47 | Outpatient (AMB) | payer BC, SELFPAY ==
--- NOTE | 2025-05-04 10:55 | A.OFFPC_ITS ---
Vital Signs 05/04/25 10:58 Height 5 ft 5 in Weight 140 lb 6 oz BMI 23.4 BP 110/82 Blood Pressure Location Lt brachial Position Sitting Pulse 76 Pulse Source Pulse Oximeter Temp 97.1 F Temp Source Temporal Artery Scan Pulse Oximetry (%) 100 Oxygen Delivery Method Room Air Intake Visit Reasons: f/u weight check Intake Note: Patient is here to follow up on Weight check. Industrial Organization Manager Required: No Handkerchief Folder: Not Required per policy Accompanied by: Self / Same As Patient Allergies No Known Allergies Allergy (Verified 05/04/25 11:07) Medication List - Last Reconciled 05/04/25 by Joseph Palencia PA-C bimatoprost 0.03% topical DAILY bupropion HCl XL (Wellbutrin XL) 300 mg PO QAM 90 days calcium carbonate (Oyster Shell Calcium) 500 mg PO BID 90 days cyclobenzaprine 5 mg PO BID 7 days estradiol 0.01%(0.1mg/gram) vaginal finasteride 5 mg PO DAILY levothyroxine 75 mcg PO DAILY minoxidil mg PO semaglutide (weight loss) (Wegovy) 2.4 mg (0.75 mL) subcut QWEEK 4 weeks triamcinolone acetonide 0.5% 1 appl topical DAILY 30 days upadacitinib ER (Rinvoq) 45 mg PO DAILY Tobacco use date assessed: 05/04/25 Dental Screening Dental Screen Date: 12/29/24 HPI f/u weight check HPI Details Lucia is a 64-year-old female here today for follow-up visit ? ? ? . Pmhx significant for Hypothyroid, UC, hyperlipidemia, anxiety, hyperlipidemia vit D def. ? .. ?? ? Overweight: Has gained 7 lb since last office visit in the last 4 months. She continues on Wegovy 2.4 mg weekly and adverse effects such as hair loss and fatigue, noting these changes coincide with increased cholesterol and blood pressure levels. Historical context reveals a stabilized state of ulcerative colitis with non-overlapping therapeutic regimens Rinvoq showing success. Complaints of insulin resistance and a slow metabolism complicate weight management, leading to the patient's anxiety over returning to past unhealthy weight levels. WEGOVY JUSTIFICATION-->>> She has noted benefit of controlled cholesterol, meeting weight goal, better self-esteem and decreased depression and anxiety. Also has noted to have a low TSH thus reducing her her levothyroxine dose. ? Hypothyroid:? Patient continues on levothyroxine 75 mcg. Will recheck TSH to assure normal? Patient having difficulty with losing weight.? .. ? Anxiety: Patient reports as of late her anxiety has been very elevated due to home family stressors.? She does report her anxiety has been somewhat on manageable at times though continues on Wellbutrin.? .. ? UC; Followed by gastroenterology, And UC has been inactive as of late. She continues on Rinvoq. 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 She reports her inflammatory bowel disease has been fairly well controlled lately after she has finished treatment. ? .. ? Hyperlipidemia: Most recent lipid panel taken (nonfasting) showing a slightly borderline high cholesterol. PLAN: Plan on getting a true fasting lipid panel to ensure appropriate values of her total cholesterol and LDL. Will continue to work on lifestyle modifications on reducing high cholesterol foods in her diet. 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 Frank Hirsch, Radha José, Zach Carter and colleagues, with an educational jose roberto from [employer]. Review of Systems Const Denies headache(s) Eyes Denies loss of vision ENT Denies vertigo, Denies dizziness, Denies headache(s) and Denies sore throat Card Denies chest pain, Denies leg edema and Denies lightheadedness Resp Denies cough, Denies hemoptysis and Denies wheezing GI Denies abdominal pain, Denies melena, Denies constipation, Denies diarrhea and Denies vomiting Denies urinary frequency, Denies dysuria and Denies urinary urgency Musc Denies arthralgias, Denies joint swelling, Denies numbness and Denies tingling Neuro Denies Abnormal speech present, Denies behavioral changes, Denies vertigo, Denies dizziness, Denies headache(s), Denies loss of vision, Denies memory loss, Denies numbness and Denies tingling Psych Denies anxiety, Denies behavioral changes, Denies depression, Denies memory loss and Denies panic attacks Chetan/Lymph Denies easy bleeding and Denies easy bruising Aller/Immun Denies wheezing Physical exam (Primary Care) Vital Signs: Last Vital Signs Temp 97.1 F 05/04/25 10:58 Pulse 76 05/04/25 10:58 BP 110/82 05/04/25 10:58 Pulse Ox 100 05/04/25 10:58 Oxygen Delivery Method Room Air 05/04/25 10:58 BMI result Body Mass Index 23.4 Tobacco/Smoking Status: Tobacco use Status Tobacco use date assessed 05/04/25 05/04/25 11:02 Patient Tobacco Use Status Never used Tobacco 05/04/25 10:56 e-Cigarette/Vaping Use Never Used 05/04/25 10:56 Thrive Assessment: Date of Thrive Assessment Date Thrive assessed 12/29/24 05/04/25 10:56 Const General: healthy appearing, no acute distress, alert and awake Nutritional Appearance: well nourished Orientation/consciousness: oriented to person, oriented to place and oriented to time HENMT Ears: TM's normal bilaterally General nose exam: Normal nasal mucous membranes and turbinates present Eyes Conjunctivae: conjunctivae normal Sclerae: sclerae normal Pupils: Equal, round and reactive pupils present Neck Neck: Yes no lymphadenopathy and Yes no JVD Thyroid: Thyroid normal Carotids: no bruits Resp Effort & Inspection: normal respiratory effort and not tachypneic Auscultation: no crackles, no rales, no rhonchi and no wheezes Cardio Rate: regular rate Rhythm: regular rhythm Heart sounds: no murmurs and normal S1 and S2 GI Palpation (GI): Soft to palpation, nontender, no hepatomegaly and no splenomegaly Auscultation: normal bowel sounds Skin General skin exam: no rashes or lesions noted and dry skin Neuro General: oriented to person, oriented to place and oriented to time Cranial nerves: Yes Equal, round and reactive pupils present Speech: No Abnormal speech present Gait exam (Neuro): Normal gait present Motor exam (neuro): no tremor noted Extrem Right upper extremity: full ROM Left upper extremity: full ROM Right lower extremity: full ROM; no edema Left lower extremity: full ROM; no edema Psych Mental Status: mental status grossly normal Speech and movement: Normal speech and movement present Affect: normal affect Attitude: cooperative Thought process: Normal thought process present Office Procedures Flu Questionnaire Does the patient have a severe egg allergy?: No Does the patient have severe life threatening allergies?: No Does the patient have a fever or illness today?: No Has the patient ever had Guillain-[place] Syndrome?: No Has the patient ever had any past reaction to a flu shot?: No Immunizations Fluarix [id number] (PF) 45 mcg (15 mcg x 3)/0.5 mL IM syringe Performing Provider: Joseph Palencia PA-C [facility] Administered by: FRANKLIN Oconnor on 05/04/25 11:37 Dose Route Admin Location Dispensed Lot Number Expiration Date NDC Broadcast Operations Engineer 0.5 mL IM Left Deltoid 0.5 mL [id number] 01/24/26 [id number] makr VIS Given Date VIS Provided VIS Publication Date 05/04/25 Single Vaccine 24 Eligibility Eligibility Date Funding Source Not [facility] Eligible 05/04/25 Public Coding Level of Care Code Est Pt Level 4 (66968) Diagnoses Ulcerative colitis without complications, unspecified location K51.90 Ulcerative colitis location: unspecified ulcerative colitis location Digestive disease complication type: without complication Overweight (BMI 25.0-29.9) E66.3 Borderline high cholesterol E78.9 Hypothyroidism, unspecified type E03.9 Hypothyroidism type: unspecified Assessment & Plan Assessment & Plan (1) Ulcerative colitis: Code(s): K51.90 - Ulcerative colitis, unspecified, without complications Category: Medical Qualifiers: Ulcerative colitis location: unspecified ulcerative colitis location Digestive disease complication type: without complication Qualified Code(s): K51.90 - Ulcerative colitis, unspecified, without complications Plan: She is followed by gastroenterology and continues on Rinvoq which seems to be effective for her inflammatory bowel disease. (2) Overweight (BMI 25.0-29.9): Code(s): E66.3 - Overweight Category: Medical Plan: Noted a 7 lb weight gain since last office visit. Would like to recheck her TSH has there may be a thyroid dysfunction issue going on. Patient continues on Wegovy 2.4 mg. She has been experiencing side effects of fatigue, hair loss etcetera. She is contemplating reducing her dose of Wegovy though will like to continue on a 2.4 mg weekly dose for now and add a bit more exercise to reduce her weight further. -- > GLP-1 medical justification : While taking GLP 1 she admits to much better eating habits, increased energy, better self-esteem and was able to manage her weight a lot better. We did see noticeable effects on lowering cholesterol and reducing her dose of levothyroxine for her hypothyroidism. (3) Borderline high cholesterol: Code(s): E78.9 - Disorder of lipoprotein metabolism, unspecified Category: Medical Plan: Patient continues on lifestyle and dietary modifications to control her borde rline high cholesterol. Advised on getting a true fasting value for her borderline high cholesterol. (4) Hypothyroidism: Code(s): E03.9 - Hypothyroidism, unspecified Category: Medical Qualifiers: Hypothyroidism type: unspecified Qualified Code(s): E03.9 - Hypothyroidism, unspecified Plan: Most recent TSH was stable, we have reduced her levothyroxine dose to 75 mcg from 88 mcg due to her losing weight on GLP 1. Continue to monitor TSH to assure normal Orders: Orders TSH reflex Free T4 Today E03.9 - Hypothyroidism, unspecified Lipid Panel Today E78.9 - Disorder of lipoprotein metabolism, unspecified Influenza [id number] Immunization Today Z23 - Encounter for immunization Comprehensive Cunningham. Panel Fast Today Z13.1 - Encounter for screening for diabetes mellitus Complete Blood Count no Diff Today E78.9 - Disorder of lipoprotein metabolism, unspecified
[2025-05-04 10:58] VITALS: BP 110/82; PULSE 76; TEMP 36.2; O2SAT 100; BMI 23.4
== END 2025-05-04 11:35 | disposition home or self-care (01) ==
LOC: HO.HMCH 10:48
PROVIDERS: PCP Physician Assistant; Visit Provider Physician Assistant
DX: K51.90 Ulcerative colitis, unspecified, without complications (principal); E66.3 Overweight; E78.9 Disorder of lipoprotein metabolism, unspecified; E03.9 Hypothyroidism, unspecified; Z23 Encounter for immunization

== ENCOUNTER → 2025-05-04 10:47 | Outpatient (BNVA) | payer BC, SELFPAY | PROVIDERS: PCP Physician Assistant; Visit Provider Physician Assistant | DX: E66.3 Overweight (principal); E03.9 Hypothyroidism, unspecified; F41.9 Anxiety disorder, unspecified; E78.5 Hyperlipidemia, unspecified; K51.90 Ulcerative colitis, unspecified, without complications; Z23 Encounter for immunization; Z68.23 Body mass index [BMI] 23.0-23.9, adult | CPT/HCPCS: 90471; 90656 ==